=== PATIENT | female | born 1940 | race Caucasian/White ===

== ENCOUNTER 2018-07-22 09:22 | Inpatient (IN) | payer MEDICARE, OTHER ==
--- NOTE | 2018-07-22 11:09 | RAD ---
PORTABLE CHEST: Date: 07/22/18 HISTORY: Altered mental status. COMPARISON: 11/15/15. FINDINGS: Heart size is within normal limits for portable technique. Atherosclerotic changes are seen in the ao rta. The lungs are clear of infiltrates. Old right-sided rib fracture and right clavicle fracture are noted. IMPRESSION: No active intrathoracic disease. POS: [facility]
[2018-07-22 11:37] LABS: ALT (SGPT) 21 U/L (8-55); AST (SGOT) 16 U/L (5-34); Albumin 3.5 g/dL (3.4-4.8); Alkaline Phosphatase 75 U/L (40-150); Anion Gap 17 mmol/L (10-20); BUN (Urea Nitrogen) 12 mg/dL (9.8-20.1); Bilirubin, Total 0.4 mg/dL (0.2-1.2); CK (CPK) 95 U/L (29-168); Calc. Creatinine Clearance 0 mL/min (70-130); Calcium 8.8 mg/dL (7.8-10.44); Carbon Dioxide 24 mmol/L (23-31); Chloride 98 mmol/L (98-107); Estimated GFR-MDRD 52; Globulin 3.2 g/dL (2.4-3.5); Glucose 301 mg/dL (83-110); Potassium 3.9 mmol/L (3.5-5.1); Protein, Total 6.7 g/dL (6.0-8.3); Sodium 135 mmol/L (136-145)
[2018-07-22 11:38] LABS: Anisocytosis SLIGHT = 6-15 cells (100X) (0-5/hpf); Band 9 % (5-11); Eosinophils 2 % (0-10); Hypochromia SLIGHT = 6-15 cells (100X) (0-5/hpf); Lymphocytes 11 % (21-51); MDiff Complete? YES; Mean Corpuscular HGB CONC 30.3 g/dL (32.0-36.0); Mean Corpuscular Hemoglobin 24.4 pg (27.0-31.0); Mean Corpuscular Volume 80.5 fL (78.0-98.0); Mean Platelet Volume 5.9 fL (7.4-10.4); Metamyelocyte 1 % (0-0); Microcytosis SLIGHT = 6-15 cells (100X) (0-5/hpf); Monocytes 9 % (0-10); Neutrophil 64 % (42-75); Platelet Count 440 thou/uL (130-400); Platelet Morphology Comment Appears Adequate; RBC Distribution Width 14.8 % (11.5-14.5); Reactive Lymphocytes 3 % (0-10); Red Blood Cell (RBC) Count 4.07 mill/uL (4.20-5.40); Toxic Granulation SLIGHT; Vacuoles SLIGHT
[2018-07-22] MEDS ORDERED: cefTRIAXone\\ROCEPHIN 1 GM VIAL ONE (11:41)
[2018-07-22] MEDS ORDERED: Sodium Chloride 0.9% 100 ML ONE (11:42)
[2018-07-22 11:45] LABS: Bilirubin Negative (Negative); Blood, Urine Small (Negative); Clarity Slightly Cloudy (Clear); Glucose, Urine (Dipstick) >=1000 mg/dL (Negative); Leukocyte Small (Negative); Nitrite Negative (Negative); Protein, Urine (Dipstick) Negative (Neg-Trace); Specific Gravity, Urine 1.015 (1.005-1.030); Urobilinogen 0.2 mg/dL (0.2-1.0)
[2018-07-22 11:50] LABS: RBC/HPF 0-3 HPF (0-3)
[2018-07-22 11:51] LABS: Bacteria/HPF 1+ HPF (None Seen); Renal Epithelial 0-3 HPF (0-3); Squamous Epithelial 0-3 HPF (0-3)
[2018-07-22 11:52] LABS: Hyaline Casts/LPF 0-3 HYALINE CAST LPF (0-3 Hyaline)
[2018-07-22 14:22] LABS: Troponin I Less than 0.010 ng/mL (< 0.028)
[2018-07-22] MEDS ORDERED: Acetaminophen 325 MG TAB PO PRN (16:35)
[2018-07-22] MEDS ORDERED: Ondansetron PF 4 MG/2 ML Vial IVP PRN (16:35)
[2018-07-22] MEDS ORDERED: Ondansetron ODT 4 MG TAB SL PRN (16:35)
[2018-07-22] MEDS ORDERED: Sodium Chloride 0.9% 1,000 ML IV SCH (16:45)
[2018-07-22 17:35] LABS: Troponin I Less than 0.010 ng/mL (< 0.028)
[2018-07-22] MEDS ORDERED: HumaLOG 300 UNITS/3 ML VIAL SC SCH (18:00)
[2018-07-22] MEDS ORDERED: Dextrose 50% Abboject 50 ML SYRINGE SLOW IVP PRN (18:32)
[2018-07-22] MEDS ORDERED: Dextrose 5% in Water 1,000 ML IV PRN (18:32)
[2018-07-22] MEDS ORDERED: Carbidopa/Levodopa 25-100 mg Tablet PO SCH ×2 (19:15→21:00)
[2018-07-22] MEDS: Carbidopa/Levodopa CR 50-200 mg Tablet PO SCH (21:23)
[2018-07-22] MEDS: Metoprolol Tartrate 25 MG TAB PO SCH (21:23)
--- NOTE | 2018-07-23 00:58 | HP ---
PRIMARY CARE PHYSICIAN: Randy Alexander. PRIMARY SUMMER BABYSITTER: Dr. De. CHIEF COMPLAINT: Urinary tract infection and acute confusion. HISTORY OF PRESENT ILLNESS: Ms. Fernández is a pleasant 77-year-old female with past medical history of atrial fibrillation, diabetes mellitus, hypothyroidism, Parkinson disease, who had presented to [facility] with increased symptoms of urinary frequency, urgency, and dysuria over the last week. She was seen by her family physician and started on ciprofloxacin last Sunday, she states that she has been taking this antibiotic since. Family was present at bedside and reports worsening generalized weakness along with acute confusion. The patient was noted to make a comment yesterday that she had requested family members to call 911 and to tell them that a bus was buried in the backyard with children in it. Family reports visual hallucinations, she has a history of Parkinson disease and takes carbidopa levodopa. Family, however, deny any history of these hallucinations in the past. They state that these have been worsening over the last week since she was recently diagnosed with urinary tract infection. She had denied any headache, fever, chills, any chest pain, palpitations, shortness of breath, abdominal pain , nausea, or vomiting. During the workup in the emergency department, it was found the patient be in acute atrial fibrillation with RVR, she was given 2 L of IV fluid and started on IV ceftriaxone secondary to UTI. Heart rate did improve in the 90s; however, once she was transferred to [facility] on the floor, heart rate was noted to return back in 130s. She had still denied any chest pain, palpitations, or shortness of breath or any other acute symptoms at that time. Blood cultures and also urine culture were obtained and pending at this time. The patient will be admitted for further workup and management of her symptoms. REVIEW OF SYSTEMS: All other systems reviewed and found to be negative unless mentioned in the HPI. PAST MEDICAL HISTORY: Significant for atrial fibrillation, diabetes mellitus, hypothyroidism, Parkinson disease. PAST SURGICAL HISTORY: Tonsillectomy. PSYCHIATRIC HISTORY: Reports Parkinson disease. Otherwise, no other psychiatric history. SOCIAL HISTORY: The patient lives at home with family and denies any alcohol, tobacco, or illicit drug use. KNOWN ALLERGIES: None. CURRENT HOME MEDICATIONS: 1. Metoprolol tartrate 50 mg p.o. b.i.d. 2. Levothyroxine 100 mcg oral daily. 3. Carbidopa levodopa 25/100 mg oral 3 times daily. 4. Humalog insulin pump home 4 times a day and before meals. PHYSICAL EXAMINATION: VITAL SIGNS: Blood pressure 128/61, pulse 137, respirations 17, O2 saturation 98% on room air, temperature 98.4 degrees Fahrenheit. GENERAL: The patient is awake, alert, and oriented x3, no acute distress noted. She does appear, however, generalized weak and appears slightly uncomfortable, however, denies any pain. HEENT: Atraumatic and normocephalic. Pupils are round and reactive to light. Extraocular muscles intact. Moist mucous membranes noted. NECK: Soft and supple. Trachea midline. CARDIOVASCULAR: Positive S1 and S2. Irregularly irregular rhythm with rates in the 130s on the monitor. No murmur auscultated. RESPIRATORY: Clear to auscultation bilaterally. No wheezes, rales, or rhonchi. ABDOMEN: Soft. Mild suprapubic tenderness noted to palpation, otherwise unremarkable. Bowel sounds present. BACK: Normal range of motion. No CVA tenderness. MUSCULOSKELETAL: Strength 5+ bilaterally in upper and lower extremities. Moves all extremities equal. No edema noted. NEUROLOGIC: Cranial nerves 2 through 12 grossly intact. No focal deficits noted. The patient oriented to person, place, and time; however, does appear confused at times and asked questions repetitively. SKIN: Warm, dry, and intact. PSYCHIATRIC: Good mood and affect. LABORATORY DATA: WBC 10.0, RBC 4.07, hemoglobin 10.0, platelet 440. Sodium 135 , potassium 3.9, anion gap 17, BUN 12, creatinine 1.04, estimated GFR 52, glucose 234. Lactic acid 1.0. Troponin less than 0.010 x3. Urinalysis shows small leukocyte esterase, 4 to 6 wbc's, 1+ bacteria, small blood, 40 ketone, and greater or equal to 1000 glucose. DIAGNOSTIC IMAGING: Chest x-ray, no active intrathoracic disease noted. ASSESSMENT AND PLAN: 1. Urinary tract infection. Await blood cultures and urine cultures at this time, currently pending. The patient will be started on IV ceftriaxone and this will be continued until cultures are finalized with sensitivities. 2. Atrial fibrillation with rapid ventricular response. The patient will be given bolus of 20 mg IV Cardizem and also be continued on her home medications including metoprolol. The patient is not on any anticoagulation at this time due to risk of falls, her primary die set up worker is Dr. De, who had discontinued anticoagulation in the past. 3. Acute encephalopathy, likely secondary to #1. The patient will be continued on IV antibiotics at this time until cultures return. 4. Diabetes mellitus. The patient will be continued on her home insulin pump at this time with frequent Accu-Cheks. Further changes pending her progress. 5. Hypothyroidism. The patient will be continued on her home regimen of levothyroxine. 6. History of Parkinson disease. Continue home regimen at this time. 7. Code status, full code. 8. Surrogate decision maker is her , [place]. DISPOSITION: Pending further workup and clinical findings. Job ID: [id number] MTDD
[2018-07-23 05:43] LABS: Anion Gap 13 mmol/L (10-20); BUN (Urea Nitrogen) 11 mg/dL (9.8-20.1); Calc. Creatinine Clearance 0 mL/min (70-130); Calcium 8.7 mg/dL (7.8-10.44); Carbon Dioxide 24 mmol/L (23-31); Chloride 103 mmol/L (98-107); Estimated GFR-MDRD 62; Glucose 189 mg/dL (83-110); Potassium 3.6 mmol/L (3.5-5.1); Sodium 136 mmol/L (136-145)
[2018-07-23 05:55] LABS: Band 14 % (5-11); Hemoglobin 10.1 g/dL (12.0-16.0); Lymphocytes 17 % (21-51); MDiff Complete? YES; Mean Corpuscular HGB CONC 30.5 g/dL (32.0-36.0); Mean Corpuscular Hemoglobin 25.5 pg (27.0-31.0); Mean Corpuscular Volume 83.5 fL (78.0-98.0); Mean Platelet Volume 7.3 fL (7.4-10.4); Monocytes 6 % (0-10); Myelocyte 2 % (0-0); Neutrophil 61 % (42-75); Platelet Count 496 thou/uL (130-400); RBC Distribution Width 14.7 % (11.5-14.5); Red Blood Cell (RBC) Count 3.97 mill/uL (4.20-5.40)
[2018-07-23] MEDS: Carbidopa/Levodopa 25-100 mg Tablet PO SCH ×3 (06:28→18:44)
[2018-07-23] MEDS: Levothyroxine Sodium 100 MCG TAB PO SCH (06:28)
[2018-07-23] MEDS: Metoprolol Tartrate 25 MG TAB PO SCH ×2 (08:22→20:31)
[2018-07-23] MEDS: Enoxaparin Sodium 40 MG/0.4 ML SYRINGE SC SCH (08:22)
[2018-07-23] MEDS: Famotidine 20 MG TAB PO SCH (08:22)
--- NOTE | 2018-07-23 09:26 | PDOC.PN ---
- Subjective Encounter Start Date: 07/23/18 Encounter Start Time: 11:10 Subjective: Patient with some confusion and hallucination on waking this AM, better -: now, was agitated last night and didn't sleep well. - Objective MAR Reviewed: Yes Vital Signs & Weight: Vital Signs (12 hours) Temp Pulse Resp BP BP Pulse Ox 07/23/18 08:20 98 F 120 H 18 112/63 96 07/23/18 04:00 97.4 F L 97 16 128/60 94 L 07/23/18 00:00 107 H 120/68 Weight Weight 5.358 oz Result Diagrams: 07/23/18 05:02 07/23/18 05:02 Additional Labs: Accuchecks 07/23/18 07/23/18 07/22/18 05:59 00:07 20:33 POC Glucose 187 H 188 H 293 H 07/22/18 16:47 POC Glucose 234 H Phys Exam - Physical Examination Constitutional: NAD HEENT: moist MMs Respiratory: no wheezing, no rales, no rhonchi Cardiovascular: irregular 90-100s rate Gastrointestinal: soft, positive bowel sounds Neurological: non-focal, moves all 4 limbs Deviation from normal: sleepy, arousable, mildly confused, no active hallucinations right now Dx/Plan (1) Urinary tract infection Status: Acute Comment: failed outpatient Cipro, on Rocephin since 07/22/2018 (2) Atrial fibrillation with rapid ventricular response Code(s): I48.91 - UNSPECIFIED ATRIAL FIBRILLATION Status: Acute Comment: Slowed with Cardizem last night but back up this AM, will rebolus and start diltiazem drip, Dr. Grajeda consulted (3) Acute metabolic encephalopathy Code(s): G93.41 - METABOLIC ENCEPHALOPATHY Status: Acute Comment: possibly secondary to UTI, however UA doesn't look that bad so not completely convinced that this is treatment failure, other possibility would be delirium from medications like the Cipro or from the Afib with RVR which have uncovered her parkinson's symptoms (she had hallucinations in the past prior to starting treatmtent) (4) Parkinson's disease Code(s): G20 - PARKINSON'S DISEASE Status: Chronic (5) DM type 2 (diabetes mellitus, type 2) Status: Chronic Qualifiers: Diabetes mellitus long-term insulin use: with road engineer use Comment: on insulin pump (6) Hypothyroidism Code(s): E03.9 - HYPOTHYROIDISM, UNSPECIFIED Status: Chronic Comment: on levothyroxine - Plan cont current plan of care, continue antibiotics, PT/OT, DVT proph w/lovenox, DVT proph w/SCDs * . - Discharge Day Encounter end time: 11:20
[2018-07-23] MEDS ORDERED: Diltiazem 125 MG in Sodium Chloride 0.9% 100 ML IVPB SCH (09:30)
[2018-07-23] MEDS ORDERED: Melatonin 3 MG TAB PO PRN (12:25)
[2018-07-23 12:41] VITALS: BMI 27.2
[2018-07-23] MEDS ORDERED: cefTRIAXone\\ROCEPHIN 1 GM in Sodium Chloride 0.9% 100 ML IVPB SCH (15:00)
[2018-07-23] MEDS: Carbidopa/Levodopa CR 50-200 mg Tablet PO SCH (20:30)
--- NOTE | 2018-07-23 20:36 | CON ---
DATE OF CONSULTATION: 07/23/2018 REASON FOR CONSULTATION: Atrial fibrillation. HISTORY OF PRESENT ILLNESS: Ms. Fernández is a 77-year-old woman, who has been seen and evaluated by Dr. Alex De in the past. She has an appointment coming up in August. She recently presented with atrial fibrillation. She states that she has had intermittent atrial fibrillation in the past. This occurred when she has a sickness. She recently was diagnosed with UTI and was placed on IV antibiotics. She does have intermittent heart fluttering. No chest pain, pressure, or shortness of breath. She has not been on anticoagulation therapy in the past due to risk of falls and bleeding. PAST MEDICAL HISTORY: As described above including diabetes mellitus, Parkinson disease, hypothyroidism, and tonsillectomy. HOME MEDICATIONS: Include metoprolol, levothyroxine, carbidopa, and Humalog. REVIEW OF SYSTEMS: A 10-point review of systems is reviewed as above, otherwise negative. PHYSICAL EXAMINATION: GENERAL: Patient is a pleasant female, who is in no acute distress. The patient appears their stated age. VITAL SIGNS: Blood pressure 131/76, pulse 107, temperature 97.9. NEUROLOGIC: The patient is alert and oriented x3 with no focal neurologic deficits. HEENT: Sclerae without icterus. Mouth has moist mucous membranes with normal pallor. NECK: No JVD. Carotid upstroke brisk. No bruits bilaterally. LUNGS: Clear to auscultation with unlabored respirations. BACK: No scoliosis or kyphosis. CARDIAC: Irregularly irregular. ABDOMEN: Soft, nontender, nondistended. No peritoneal signs present. No hepatosplenomegaly. No abnormal striae. EXTREMITIES: 2+ femoral and 2+ dorsalis pedis pulses. No cyanosis, clubbing, or edema. SKIN: No gross abnormalities. PERTINENT LABORATORY DATA: Hemoglobin 10.1. Creatinine 0.89. IMPRESSION: 1. Atrial fibrillation with rapid ventricular response. 2. Urinary tract infection, complicated. RECOMMENDATIONS: IV Cardizem has been discontinued. She is currently on beta marina therapy and would titrate as needed. She is currently on 50 mg of metoprolol b.i.d. We will increase to 75 b.i.d. and may need to back off prior to discharge. Okay from my standpoint to cover with Lovenox, but the patient is concerned about anticoagulation therapy at home. Family was present during discussion. At this point, they would like to speak further with Dr. De as an outpatient. We will defer anticoagulation therapy after discharge. Job ID: [id number]
[2018-07-23] MEDS ORDERED: Metoprolol Tartrate 50 MG TAB PO SCH (21:00)
[2018-07-24] MEDS: Levothyroxine Sodium 100 MCG TAB PO SCH (05:05)
[2018-07-24] MEDS: Carbidopa/Levodopa 25-100 mg Tablet PO SCH ×2 (05:06→12:28)
--- NOTE | 2018-07-24 06:29 | PDOC.CTH ---
Cardiology Progress Note - Objective Vital Signs Temp Pulse Resp BP Pulse Ox 07/24/18 04:00 98.0 F 92 18 124/66 94 L 07/24/18 00:00 97 143/61 H 07/23/18 20:10 97 07/23/18 19:25 98.4 F 114 H 18 125/69 97 Admit Weight 153 lb 9.6 oz Weight 158 lb 12.8 oz 07/22/18 07/23/18 07/24/18 06:59 06:59 06:59 Intake Total 1700 Output Total 1400 Balance 300 - Physical Examination General/Neuro: alert & oriented x3, NAD Neck: carotid US brisk, no JVD present Lungs: unlabored respirations Heart: other: (irr) Abdomen: NT/ND, soft Extremities: + femoral B - Telemetry Telemetry Rhythm: IRR - Labs Result Diagrams: 07/23/18 05:02 07/23/18 05:02 Troponin/CKMB Troponin I Less than 0.010 ng/mL (< 0.028) 07/22/18 17:10 - Assessment/Plan Afib UTI Parkinsons Continue rate control. HR better with increase in BB Antibiotics Pt has deferred ACT given risk of falls
[2018-07-24] MEDS ORDERED: Levothyroxine Sodium 100 MCG TAB PO SCH (09:00)
--- NOTE | 2018-07-24 09:03 | PDOC.PN ---
- Subjective Encounter Start Date: 07/24/18 Encounter Start Time: 10:00 Subjective: Patient feeling better. Slept better last night. No further hallucinations -: or confusion. A&O x3 this AM. Ambulating with PT. at bedside. - Objective MAR Reviewed: Yes Vital Signs & Weight: Vital Signs (12 hours) Temp Pulse Resp BP Pulse Ox 07/24/18 04:00 98.0 F 92 18 124/66 94 L 07/24/18 00:00 97 143/61 H Weight Admit Weight 153 lb 9.6 oz Weight 158 lb 12.8 oz I&O: 07/23/18 07/24/18 07/25/18 06:59 06:59 06:59 Intake Total 1700 Output Total 1400 Balance 300 Result Diagrams: 07/23/18 05:02 07/23/18 05:02 Additional Labs: Accuchecks 07/24/18 07/23/18 07/23/18 05:40 20:35 17:33 POC Glucose 325 H 174 H 109 07/23/18 11:02 POC Glucose 163 H Phys Exam - Physical Examination Constitutional: NAD HEENT: moist MMs Respiratory: no wheezing, no rales, no rhonchi, clear to auscultation bilateral Cardiovascular: RRR, no significant murmur Gastrointestinal: soft, positive bowel sounds Neurological: non-focal, moves all 4 limbs Psychiatric: normal affect, A&O x 3 Dx/Plan (1) Urinary tract infection Status: Acute Comment: failed outpatient Cipro, on Rocephin since 07/22/2018, growing E. coli resistant to Cipro but sensitive to Rocephin, can convert to oral Omnicef. (2) Atrial fibrillation with rapid ventricular response Code(s): I48.91 - UNSPECIFIED ATRIAL FIBRILLATION Status: Acute Comment: Dr. Grajeda following. Rate improved with increased Metoprolol dose. Deferring anticoagulation due to hx of falls. (3) Acute metabolic encephalopathy Code(s): G93.41 - METABOLIC ENCEPHALOPATHY Status: Acute Comment: likely secondary to UTI uncovering Parkinson's symptoms (4) Parkinson's disease Code(s): G20 - PARKINSON'S DISEASE Status: Chronic (5) DM type 2 (diabetes mellitus, type 2) Status: Chronic Qualifiers: Diabetes mellitus longterm insulin use: with terminal computer operator use Comment: on insulin pump (6) Hypothyroidism Code(s): E03.9 - HYPOTHYROIDISM, UNSPECIFIED Status: Chronic Comment: on levothyroxine - Plan cont current plan of care, continue antibiotics, PT/OT If ambulates well with PT today can go home with home health. * . - Discharge Day Encounter end time: 10:30
[2018-07-24] MEDS: Famotidine 20 MG TAB PO SCH (09:07)
[2018-07-24] MEDS: Enoxaparin Sodium 40 MG/0.4 ML SYRINGE SC SCH (09:08)
[2018-07-24] MEDS: Metoprolol Tartrate 25 MG TAB PO SCH (09:08)
[2018-07-24 16:07] VITALS: BP 147/81; TEMP 97.7
[2018-07-24] MEDS ORDERED: Cefdinir 300 MG CAP PO SCH (21:00)
--- NOTE | 2018-07-25 07:54 | DIS ---
DATE OF ADMISSION: 07/22/2018 DATE OF DISCHARGE: 07/24/2018 PRIMARY CARE PHYSICIAN: Randy Alexander. PRIMARY TRANSFORMER REPAIRER: Dr. De. REASON FOR ADMISSION: Delirium and urinary tract infection. DISCHARGE DIAGNOSES: 1. Urinary tract infection. 2. Atrial fibrillation with rapid ventricular response, now controlled. 3. Acute metabolic encephalopathy, resolved. 4. Parkinson disease. 5. Diabetes mellitus, type 2. 6. Hypothyroidism. PROCEDURES: None. CONSULTATION: Cardiology, Dr. Grajeda. SUMMARY OF HOSPITAL COURSE: This is a 77-year-old white female with a history of Parkinson's, previously with hallucinations until she started taking medications for it. She was in her normal state of health until a little over week ago. She developed urinary frequency, urgency, and dysuria. She was treated by her primary care doctor with ciprofloxacin. However, she worsened over the last couple of days and then she started having hallucinations along with weakness. She was seen in the emergency room, was noted to be in atrial fibrillation with RVR. She states the atrial fibrillation was not a new diagnosis, but usually is controlled. She was also noted to have a persistent urinary tract infection. Urine culture was done and the patient was started on Rocephin. She was admitted to the hospital. Her heart rate was controlled by increasing her metoprolol. Dr. Grajeda was consulted with Cardiology. He did discuss doing anticoagulation for the patient given her history of atrial fibrillation to prevent stroke. However, she and her family were concerned about her history of falls and want to defer discussing further about anticoagulation until she talks with her outpatient farm or ranch animal caretaker, Dr. De. The patient had some continued confusion in the first day or so in the hospital; however, this improved. Her urine culture eventually grew out Escherichia coli that was resistant to ciprofloxacin, but sensitive to Rocephin. On the day of discharge, she ambulated well with physical therapy and we did discuss with her and her about going to rehab versus home with home health and they determined they wanted to go home with home health. The stated that he thinks he can take care of her well at home. DISCHARGE MANAGEMENT: Discharged home with [facility]. ACTIVITY: As tolerated. DIET: Diabetic diet. THERAPY: Physical and occupational therapy. FOLLOWUP: Follow up with primary care physician in the next week and with Dr. De in the next 1 to 2 weeks. DISCHARGE MEDICATIONS: 1. Omnicef 300 mg twice a day for 10 more days. 2. Metoprolol tartrate 75 mg twice a day, 60 tablets dispensed. 3. Continue carbidopa/levodopa 25/100 mg tablets one tablet 3 times a day. 4. Carbidopa/levodopa extended release 25/100 mg tablet one at night. 5. Levothyroxine 100 mcg daily. TIME SPENT: Arranging the details of this discharge took 32 minutes. Job ID: [id number]
== END 2018-07-24 16:45 | disposition home health service (06) | DRG 689 ==
LOC: SCSER 09:22 → 2NO 12:50
PROVIDERS: ADMIT Internal Medicine; ATTEND Internal Medicine
DX: N39.0 Urinary tract infection, site not specified (principal); G93.41 Metabolic encephalopathy; I48.91 Unspecified atrial fibrillation; E11.9 Type 2 diabetes mellitus without complications; E03.9 Hypothyroidism, unspecified; G20 Parkinson's disease; Z96.41 Presence of insulin pump (external) (internal); B96.20 Unspecified Escherichia coli [E. coli] as the cause of diseases classified elsewhere; Z79.899 Other long term (current) drug therapy; Z79.4 Long term (current) use of insulin
CPT/HCPCS: 36415; 36416; 71045; 80048; 80053; 81003; 81015; 82550; 83605; 84484; 85025; 87040; 87077; 87086; 87186; 93005; 96361; 96365; J0696; J1650; J3490

== ENCOUNTER 2019-02-28 17:21 | Inpatient (IN) | payer MEDICARE ==
[~2019-02-28 17:21] MED LIST: Iopamidol-370 76% 500 ML 1 ML ONE
[2019-02-28] MEDS ORDERED: Morphine 4 MG/ML VIAL ONE (18:19)
[2019-02-28 18:26] LABS: #Eosinphils 0.1 thou/uL (0.0-0.7); #Lymphocytes 0.9 thou/uL (1.20-3.40); #Monocytes 1.2 thou/uL (0.11-0.59); #Neutrophils 12.5 thou/uL (1.40-6.50); %Basophils 0.1 % (0.0-1.0); %Eosinophils 0.5 % (0.0-10.0); %Lymphocytes 5.9 % (21.0-51.0); %Monocytes 8.1 % (0.0-10.0); %Neutrophils 85.3 % (42.0-75.0); Hemoglobin 10.7 g/dL (12.0-16.0); Mean Corpuscular HGB CONC 31.6 g/dL (32.0-36.0); Mean Corpuscular Hemoglobin 25.6 pg (27.0-31.0); Mean Corpuscular Volume 81.1 fL (78.0-98.0); Mean Platelet Volume 8.1 fL (7.4-10.4); Platelet Count 245 thou/uL (130-400); RBC Distribution Width 15.2 % (11.5-14.5); Red Blood Cell (RBC) Count 4.17 mill/uL (4.20-5.40); White Blood Cell (WBC) Count 14.6 thou/uL (4.8-10.8)
[2019-02-28 18:49] LABS: ALT (SGPT) 8 U/L (8-55); AST (SGOT) 28 U/L (5-34); Albumin 4.2 g/dL (3.4-4.8); Alkaline Phosphatase 96 U/L (40-110); Anion Gap 13 mmol/L (10-20); BUN (Urea Nitrogen) 28 mg/dL (9.8-20.1); Bilirubin, Total 0.5 mg/dL (0.2-1.2); Calc. Creatinine Clearance 0 mL/min (70-130); Calcium 9.5 mg/dL (7.8-10.44); Carbon Dioxide 27 mmol/L (23-31); Chloride 101 mmol/L (98-107); Estimated GFR-MDRD 49; Glucose 201 mg/dL (83-110); Potassium 4.5 mmol/L (3.5-5.1); Protein, Total 7.2 g/dL (6.0-8.3); Sodium 136 mmol/L (136-145)
--- NOTE | 2019-02-28 18:54 | RAD ---
XR Chest 1 View Portable History: Fall Comparison: Radiograph July 22, 2018 Findings: Heart size mildly enlarged. Mild ectasia of the aorta. Old right midclavicular fracture. No pneumothorax. No effusion. Possible fracture of the left scapular body. Impression: Concern for a left scapular body fracture. Age-indeterminate right lateral sixth rib frac ture.
--- NOTE | 2019-02-28 18:57 | RAD ---
XR Pelvis AP STANDARD History: Fall Comparison: None. Findings: Lumbosacral transitional vertebra. There is listhesis, which may be chronic, of L3 over L4. There is a lucency of the right initial spine although may be positional. Obturator rings appear to be intact as well as the femoral heads and necks. Impression: 1. Lucency through the right ischial spine may be positional due to rightward patient rotation. Remai nder the pelvis appears without fracture. 2. Subluxation of with appears be L3 over L4 could be chronic degenerative in nature. 3. Lumbosacral transitional vertebra. 4. Sclerosis of the left S1 may reflect a healed chronic insufficiency fracture versus a dense vascul ar calcification.
[2019-02-28 18:58] LABS: Bilirubin Negative (Negative); Blood, Urine Negative (Negative); Clarity Clear (Clear); Glucose, Urine (Dipstick) Normal (Negative); Leukocyte 500 Leu/uL (Negative); Nitrite Negative (Negative); Protein, Urine (Dipstick) 30 mg/dL (Neg-Trace); Squamous Epithelial 0-3 HPF (0-3); WBC/HPF Greater than 50 HPF (0-3)
--- NOTE | 2019-02-28 19:36 | CT ---
CT Brain WO Con History: Fall Comparison: CT brain 2016 Findings: No acute hemorrhage or infarct. No midline shift or mass effect. Ventricular size and extra -axial CSF spaces are normal. Calvarium is intact. Paranasal sinuses and mastoids are clear. Impression: No acute intracranial abnormality.
[2019-02-28 19:38] LABS: Bacteria/HPF 1+ HPF (None Seen)
--- NOTE | 2019-02-28 19:43 | CT ---
CT Cervical Spine WO Con History: Fall Comparison: CT cervical spine 2016 Findings: Old C7 compression fracture. The occipital condyles are intact. The odontoid process is int act. No acute traumatic facet joint widening. New height loss of the T2 vertebral body with what appears to be a coronally oriented fracture throug h the anterior vertebral body. This appears be a acute on chronic fracture. Small anterior paraspinal hematoma at the level of T2. No retropulsion. Lung apices are relatively clear. Impression: 1. No acute cervical spine fracture. 2. Soft tissue edema around the T2 vertebral body with appears be an old compression deformity with 5 0% height loss with a relatively acute-appearing coronally oriented fracture through the anterior 20% of the vertebral body.
--- NOTE | 2019-02-28 19:50 | CT ---
CT Abdomen Pelvis Trauma History: Fall from standing. Comparison: None. Findings: Mild scarring lung bases. No pericardial effusion. Aortic contour is nonaneurysmal. No dilated loops of large or small bowel. No hydronephrosis. No free intraperitoneal gas or fluid. No mesenteric hematoma. Moderate degenerative changes both SI joints. Lumbosacral transitional vertebra. Healing insufficienc y fractures of both sacral alar. Initial spines are intact. Femoral heads and necks are intact. Bones are demineralized. There is L3 over L4 and L4 over L5 anterolisthesis due to high-grade facet arthrosis. Large posterior disc protrusions at both these levels cause high-grade neural foraminal narrowing and effacement of the spinal canal. No transverse process fracture. No acute solid organ injury. Visualized lower ribs are intact. Impression: 1. No acute traumatic abnormality of the abdomen or pelvis. 2. Healing bilateral sacral alar insufficiency fractures. 3. Intact ischial spines. 4. High-grade facet arthropathy at the lower lumbar spine with grade 1 L3 over L4 and L4 over L5 ante rolisthesis with broad-based disc protrusions causing high-grade neural foraminal narrowing.
[2019-02-28] MEDS ORDERED: Magnesium 2 GM/50 ML BAG (IN WATER) ONE (19:53)
[2019-02-28] MEDS ORDERED: cefTRIAXone\\ROCEPHIN 1 GM VIAL ONE (19:56)
--- NOTE | 2019-02-28 20:04 | RAD ---
XR Shoulder Rt 3 View STANDARD History: Fall Comparison: None. Findings: Exam is severely limited due to the kyphosis. No definite fracture or malalignment is appre ciated. Impression: Limited examination due to kyphosis and osteopenia. No acute degenerative fracture or mal alignment of the right shoulder. Old right midclavicular fracture.
[2019-02-28] MEDS ORDERED: Fentanyl 100 MCG/2 ML VIAL ONE (20:30)
[2019-02-28] MEDS ORDERED: Diltiazem 125 MG/25 ML ONE (21:48)
[2019-02-28] MEDS ORDERED: Diltiazem HCl 125 MG, Admixture Fee 1 EACH in Sodium Chloride 0.9% 100 ML IVPB SCH (22:15)
[2019-02-28] MEDS ORDERED: Bisacodyl 5 MG TAB PO PRN (23:50)
[2019-02-28] MEDS ORDERED: HumaLOG 300 UNITS/3 ML VIAL SC PRN (23:50)
[2019-02-28] MEDS ORDERED: Dextrose 50% Abboject 50 ML SYRINGE SLOW IVP PRN (23:50)
[2019-02-28] MEDS ORDERED: Acetaminophen 325 MG TAB PO PRN (23:50)
[2019-02-28] MEDS ORDERED: Dextrose 5% in Water 1,000 ML IV PRN (23:50)
[2019-02-28] MEDS ORDERED: Furosemide 40 MG/4 ML VIAL SLOW IVP SCH (23:59)
--- NOTE | 2019-03-01 00:26 | HP ---
PRESENTING COMPLAINT: For neck pain. HISTORY OF PRESENT ILLNESS: Ms. Pradeep Espino is a 78-year-old female with past medical history of hypertension, atrial fibrillation, previously on anticoagulation due to recurrent falls, diabetes mellitus, hypertension, Parkinson disease, hypothyroidism, who presented after sustaining a fall while walking to the bathroom today. She denies any chest pain. No dizziness. She states she has been having multiple falls as well as unsteady gait. After the fall today, she noticed intense pain over the lower posterior neck. She was brought by EMS to the emergency room and imaging shows evidence of T2 fractures. The patient is being evaluated by Neurosurgery also. She admits to recurrent dysuria, but denies any current symptoms now. She admits to recent worsening of her lower extremity swelling. PAST MEDICAL HISTORY: Significant for hypertension, atrial fibrillation, not on any anticoagulation, hypothyroidism, Parkinson disease, diabetes mellitus, and recurrent falls. PAST SURGICAL HISTORY: Tonsillectomy. SOCIAL HISTORY: The patient resides at home with her family. She denies any alcohol, tobacco, or illicit drug use. HOME MEDICATIONS: Reviewed, include; 1. Sinemet. 2. Insulin pump. 3. Synthroid. 4. Metoprolol. FAMILY HISTORY: Noncontributory in this elderly lady. REVIEW OF SYSTEMS: All systems reviewed x14 were negative except as mentioned above. ALLERGIES: NO KNOW DRUG ALLERGY. PHYSICAL EXAMINATION: VITAL SIGNS: Current vitals, blood pressure of 145/87, respiratory rate of 16, O2 saturation 99% on 2 L nasal cannula. Pulse ranging from 99 to 110. GENERAL: Obese, elderly female, lying in bed, awake and conversant. HEENT: Head is atraumatic, normocephalic. cervical collar. Marked tenderness over the posterior upper thoracic margin extending to bilateral scapula and shoulders. The patient is unable to lift hands beyond 30 degrees due to pain. RESPIRATORY: Good air entry. No crepitation. CARDIOVASCULAR: S1, S2. Irregular rhythm. ABDOMEN: Full, soft, nontender. Bowel sounds positive. Left lower quadrant insulin pump noted. EXTREMITIES: 2+ pedal edema. No calf tenderness. NEUROLOGIC: The patient is conversant, alert, and oriented x3. No neurological focal motor deficit except the exam of upper extremity limited due to pain symptoms. LABORATORY DATA: WBC 14.6, platelet 245, hemoglobin 10.7, neutrophils 85%. Sodium 136, potassium 4.5, magnesium 2.0, and creatinine 1. TSH of 3.9. Urinalysis shows 500 leukocyte esterase, 1+ bacteria. IMAGING STUDIES: EKG shows atrial fibrillation with RVR pattern. X-ray of the right shoulder shows limited examination due to kyphosis and osteopenia, old right midclavicular fracture. Cervical spine CT shows soft tissue edema around the T2 vertebral body with an old compression deformity and a relatively appearing coronally-oriented fracture through the anterior 20% of the vertebral body. Chest x-ray shows concern for left scapular body fracture and a right lateral 6th rib fracture. Head CT shows no acute intracranial abnormality. Abdominal CT shows no acute traumatic abnormality of the abdomen and pelvis, healing bilateral sacral ala insufficiency fractures. IMPRESSION: 1. Urinary tract infection. 2. Recurrent falls. 3. T2 vertebral body acute fracture. 4. History of Parkinson disease. 5. Diabetes mellitus, on insulin pump. PLAN: We will admit the patient to inpatient status. We will manage the patient for the following; 1. Urinary tract infection. We will obtain urine culture. Start empirical Rocephin 1 g daily. We will adjust antibiotics based on culture. 2. Recurrent falls, may be due to Parkinson with acute UTI. We will obtain consult PT and OT re-evaluation. 3. T2 vertebral body fracture. We will do pain medication with IV morphine and start low-dose fentanyl patch. We will consult Interventional Radiology for possible kyphoplasty to improve pain symptoms in a.m. 4. Atrial fibrillation with RVR. We will increase the patient's metoprolol dosage and follow. No urgent need for anticoagulation for now. 5. Diabetes mellitus. We will hold insulin pump and do insulin sliding scale. Await Accu-Cheks. 6. Presumed acute diastolic CHF exacerbation with 2+ lower extremity edema. We will start the patient on low-dose diuretics and obtain echocardiogram. 7. Advance directives, the patient is a full code. Total time spent in evaluation of patient, discussion, greater than 70 minutes. Job ID: [id number]
--- NOTE | 2019-03-01 03:00 | CON ---
DATE OF CONSULTATION: HISTORY OF PRESENT ILLNESS: Ms. Fernández is a 78-year-old female, who reports to the ED following a fall. Family states that she was in a chair, got her feet tangled up and she fell backwards onto a concrete floor. She is complaining of shoulder pain bilaterally. Neurosurgery was consulted for a T2 compression fracture. When I entered the room, she is resting with her eyes closed and her family in the room. She complains about pain in the left shoulder more than the right, but she does not want to move either arm very well due to pain. She has a rib fracture on the right and a scapular fracture on the left and a T2 compression fracture. The patient denies pain in the low back or the legs. She denies any numbness or tingling. She moves the lower extremities for me. Wiggles her toes. Moves her ankles, knees, and hips. She moves the right arm, gives me a good official court reporter strength on both arms, but will move her left. The patient seems mildly confused. However, she does have a UTI as well. She is quite sensitive and does not like anything on her arms or her chest. REVIEW OF SYSTEMS: A 10-point review of systems is completed and negative other than stated above in the HPI. ALLERGIES: NO KNOWN DRUG ALLERGIES. CURRENT MEDICATIONS: 1. Levothyroxine. 2. Humalog. 3. Metoprolol. 4. Carvedilol. PAST MEDICAL HISTORY: Cardiac history, arrhythmia, atrial fibrillation, diabetes, endocrine, hypothyroidism, Parkinson's, C7 fracture. PAST SURGICAL HISTORY: Tonsillectomy. SOCIAL HISTORY: The patient denies alcohol, drug use, and no smoking history. PHYSICAL EXAMINATION: VITAL SIGNS: Blood pressure 146/80, heart rate 126, respirations 18, temperature 98.0, O2 saturations 96% on room air. CONSTITUTIONAL: The patient is awake and alert. She is afebrile. She is hypertensive and tachycardic. HEENT. Head is normocephalic and atraumatic. Pupils are equal, round, and reactive to light. Extraocular movements are intact. Hearing is intact. Moist mucous membranes. RESPIRATIONS: Normal work of breathing on room air. Symmetric chest rise. EXTREMITIES: Upper extremities; the patient reports significant pain in the left greater than right shoulder. She did give me a good official court reporter strength with the left hand. She moves her right shoulder with pain, but gives me good strength with biceps and triceps along with official court reporter strength, 4/5. Lower extremities; she has edema in the lower extremities, but normal range of motion. Some stiffness, but good strength in hip flexion, knee extension, knee flexion, extension, dorsiflexion, and plantar flexion. NEUROLOGIC: The patient is awake, alert, oriented to person, place, and time. I do not see any lateralizing sensory or motor deficits. Cranial nerves 2 through 12 are intact. IMAGING: CT brain, no acute intracranial abnormality. CT cervical spine, no acute cervical spinal fracture. There is soft tissue edema around T2 vertebra, which appears to be an old compression deformity with 50% height loss with a relatively acute appearing coronal oriented fracture through the anterior 20% of the vertebral body. CT chest, abdomen and pelvis, no acute traumatic abnormality of the abdomen or pelvis. Healing bilateral sacral alar insufficiency fractures. Intact ischial spine. High-grade facet atrophy of lower lumbar spine with grade 1 L3 over L4 and L4 over L5 anterolisthesis with broad-based disk protrusion causing high-grade neuroforaminal narrowing. ASSESSMENT AND PLAN: Ms. Fernández is a 78-year-old female, who sustained a fall from ground level. She has urinary tract infection, which the hospitalist is going to treat her for. She also has a scapular fracture and rib fracture along with a refracture of her T2 compression fracture. Our recommendation from neurosurgical standpoint is to put her in a brace for stability and pain control while she is up and standing. If she is in bed, she does not need to be braced. She can follow up with our office on an outpatient basis. If there are any further questions, please contact Neurosurgery. Job ID: [id number]
[2019-03-01 03:37] VITALS: BMI 25.1
[2019-03-01 04:44] LABS: Anion Gap 13 mmol/L (10-20); BUN (Urea Nitrogen) 24 mg/dL (9.8-20.1); Calc. Creatinine Clearance 54 mL/min (70-130); Calcium 8.7 mg/dL (7.8-10.44); Carbon Dioxide 21 mmol/L (23-31); Chloride 103 mmol/L (98-107); Estimated GFR-MDRD 57; Glucose 313 mg/dL (83-110); Magnesium 2.6 mg/dL (1.6-2.6); Potassium 4.2 mmol/L (3.5-5.1); Sodium 133 mmol/L (136-145)
[2019-03-01 04:49] LABS: Troponin I Less than 0.010 ng/mL (< 0.028)
[2019-03-01] MEDS ORDERED: Furosemide 40 MG/4 ML VIAL SLOW IVP SCH ×2 (06:00→14:00)
[2019-03-01] MEDS: Levothyroxine Sodium 100 MCG TAB PO SCH (06:29)
[2019-03-01] MEDS: HYDROcodone/Acetaminophen 7.5/325 mg Tablet PO PRN ×2 (08:42→14:37)
[2019-03-01] MEDS: Aspirin Chewable 81 MG TAB PO SCH (08:43)
[2019-03-01] MEDS: Enoxaparin Sodium 40 MG/0.4 ML SYRINGE SC SCH (08:44)
[2019-03-01] MEDS ORDERED: Metoprolol Tartrate 50 MG TAB PO SCH (09:00)
[2019-03-01] MEDS ORDERED: Famotidine 20 MG TAB PO SCH (09:00)
--- NOTE | 2019-03-01 10:22 | PDOC.HHP ---
Hospitalist HPI - History of Present Illness Fall History of Present Illness: Patient is a 78 year old female with PMH DM, atrial fibrillation, hypothyroidism , parkinsons disease who presented to ED for fall. Rancho at bedside, patient awake and alert. She fell backwards and hit concrete floor during meal, landed on L side, has chronic R sided weakness after bad fall 2 years ago and has been working with PT on this. She denies LOC, denies prodrome/dizziness before fall. No palpitaiton, shortness of breath, or chest pain before fall. Patient had a UTI last month treated with antibiotics by primary care Dr Meagan Arroyo. believes patient never quite recovered from this UTI despite treatment and has continued to have hallucinations and weakness. Patient was ambulating as home with 4 wheeled walker. Patient and believe this was a mechanical fall due to misstep. She reports pain in head anc shoulders and neck since the incident. this was at about 3pm yesterday. 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 She has also been getting lost around the house for the last few days. Sales And Catering Coordinator is Dr Clemons, not on blood thinner, she has dose of metoprolol changed from 75 mg BID to 25mg BID about 3 months ago by cardiology. For DM: checks sugar in AM, has a pump which uses to give injections. They have been using it here. Sugars uncontrolled. ED Course: EKG atrial fibrillation, rate 125, nonspecific ST changes, QTc 473 Hospitalist ROS - Medication Medications: Active Medications Generic Name Dose Route Start Last Admin Trade Name Freq PRN Reason Stop Dose Admin Hydrocodone Bitart/Acetaminophen 1 tab 02/28/19 23:50 03/01/19 08:42 [place] 7.5/325 PO 1 tab Q4H PRN Administration Moderate Pain (4-6) Aspirin 81 mg 03/01/19 09:00 03/01/19 08:43 Aspirin Chewable PO 81 mg DAILY ROSELYN Administration Enoxaparin Sodium 40 mg 03/01/19 09:00 03/01/19 08:44 Lovenox SC 40 mg 0900 ROSELYN Administration Famotidine 20 mg 03/01/19 09:00 03/01/19 08:43 Pepcid PO 20 mg DAILY ROSELYN Administration Fentanyl 12 mcg 03/01/19 01:00 03/01/19 03:07 Duragesic TD 12 mcg Q3D ROSELYN Administration Levothyroxine Sodium 100 mcg 03/01/19 06:00 03/01/19 06:29 Synthroid PO Not Given 0600 [facility] Metoprolol Tartrate 75 mg 03/01/19 09:00 03/01/19 10:05 Lopressor PO Not Given BID [facility] Hospitalist History - Past Medical History Other Medical History: DM, atrial fibrillation, hypothyroidism, parkinsons disease - Past Surgical History Other Surgical History: tonsillectomy - Family History Other Family History: reviewed and noncontributory - Social History Other Social History: denies alcohol, tobacco, drug usage Hospitalist Results - Labs Result Diagrams: 02/28/19 18:15 03/01/19 03:57 Lab results: WBC 14.6 thou/uL (4.8-10.8) H 02/28/19 18:15 Hgb 10.7 g/dL (12.0-16.0) L 02/28/19 18:15 Hct 33.8 % (36.0-47.0) L 02/28/19 18:15 MCV 81.1 fL (78.0-98.0) 02/28/19 18:15 Plt Count 245 thou/uL (130-400) 02/28/19 18:15 Neutrophils % 85.3 % (42.0-75.0) H 02/28/19 18:15 Sodium 133 mmol/L (136-145) L 03/01/19 03:57 Potassium 4.2 mmol/L (3.5-5.1) 03/01/19 03:57 Chloride 103 mmol/L (98-107) 03/01/19 03:57 Carbon Dioxide 21 mmol/L (23-31) L 03/01/19 03:57 BUN 24 mg/dL (9.8-20.1) H 03/01/19 03:57 Creatinine 0.96 mg/dL (0.6-1.1) 03/01/19 03:57 Glucose 313 mg/dL (83-110) H 03/01/19 03:57 Calcium 8.7 mg/dL (7.8-10.44) 03/01/19 03:57 Total Bilirubin 0.5 mg/dL (0.2-1.2) 02/28/19 18:15 AST 28 U/L (5-34) 02/28/19 18:15 ALT 8 U/L (8-55) 02/28/19 18:15 Alkaline Phosphatase 96 U/L (40-110) 02/28/19 18:15 Troponin I Less than 0.010 ng/mL (< 0.028) 03/01/19 03:57 B-Natriuretic Peptide 299.7 pg/mL (0-100) H 03/01/19 03:57 Serum Total Protein 7.2 g/dL (6.0-8.3) 02/28/19 18:15 Albumin 4.2 g/dL (3.4-4.8) 02/28/19 18:15 Urine Ketones 100 mg/dL (Negative) A 02/28/19 18:36 Urine Blood Negative (Negative) 02/28/19 18:36 Urine Nitrite Negative (Negative) 02/28/19 18:36 Ur Leukocyte Esterase 500 Vj/uL (Negative) A 02/28/19 18:36 Urine RBC 4-6 HPF (0-3) A 02/28/19 18:36 Urine WBC Greater than 50 HPF (0-3) A 02/28/19 18:36 Ur Squamous Epith Cells 0-3 HPF (0-3) 02/28/19 18:36 Urine Bacteria 1+ HPF (None Seen) A 02/28/19 18:36 Additional comment: CT C spine Impression: 1. No acute cervical spine fracture. 2. Soft tissue edema around the T2 vertebral body with appears be an old compression deformity with 5 0% height loss with a relatively acute-appearing coronally oriented fracture through the anterior 20% of the vertebral body. CT A/P 1. No acute traumatic abnormality of the abdomen or pelvis. 2. Healing bilateral sacral alar insufficiency fractures. 3. Intact ischial spines. 4. High-grade facet arthropathy at the lower lumbar spine with grade 1 L3 over L4 and L4 over L5 ante rolisthesis with broad-based disc protrusions causing high-grade neural foraminal narrowing. XR R shoulder 3 views Impression: Limited examination due to kyphosis and osteopenia. No acute degenerative fracture or mal alignment of the right shoulder. Old right midclavicular fracture. CT head no acute IC findings all reports reviewed inED documentation XR chest Impression: Concern for a left scapular body fracture. Age-indeterminate right lateral sixth rib frac ture. XR pelvis 1. Lucency through the right ischial spine may be positional due to rightward patient rotation. Remai nder the pelvis appears without fracture. 2. Subluxation of with appears be L3 over L4 could be chronic degenerative in nature. 3. Lumbosacral transitional vertebra. 4. Sclerosis of the left S1 may reflect a healed chronic insufficiency fracture versus a dense vascul ar calcification. Hospitalist H&P A/P - Plan Plan: # fall - troponinnegative high-grade facet arthropathy at the lower lumbar spine with grade 1 L3 over L4 and L4 over L5 ante rolisthesis with broad-based disc protrusions causing high-grade neural foraminal narrowing L scapular fracture, R 6th rib fracture soft tissue edema at T2 with old compression fracture # atrial fibrillation - patient was placed on cardizem drip in ED, to be converted to home dose of metoprolol 25mg PO BID # DM - continue home insulin pump, frequenct accu checks, follow sugars and adjust as needed # hypothyroidism - continue synthroid, TSH wnl # history of parkinsons disease - continue home regimen, will consider neurology consult to evaluate for need to increase doses given repeat falls Code status: full Surrogate decision maker: Rancho
[2019-03-01] MEDS ORDERED: Metoprolol Tartrate 25 MG TAB PO SCH (10:30)
[2019-03-01] MEDS ORDERED: cefTRIAXone\\ROCEPHIN 1 GM in Sodium Chloride 0.9% 100 ML IVPB SCH ×2 (11:00→21:00)
--- NOTE | 2019-03-01 11:05 | PDOC.HOSPP ---
- Subjective Encounter Date: 03/01/19 Encounter Time: 11:05 Subjective: Chief complaint: Fall Subjective Patient in bed, continues to complain of pain in shoulders, neck, back, head. Discussed case with Trauma team RITO at bedside who plans to order more imaging and will discuss with orthopedics if needed. Chart reviewed, 78 year old female with PMH DM, atrial fibrillation, hypothyroidism, parkinsons disease who presented to ED for fall. Rancho at bedside, patient awake and alert. She fell backwards and hit concrete floor during meal, landed on L side, has chronic R sided weakness after bad fall 2 years ago and has been working with PT on this. She denies LOC, denies prodrome/dizziness before fall. No palpitaiton, shortness of breath, or chest pain before fall. Patient had a UTI last month treated with antibiotics by primary care Dr Meagan Arroyo. believes patient never quite recovered from this UTI despite treatment and has continued to have hallucinations and weakness. Patient was ambulating as home with 4 wheeled walker. Patient and believe this was a mechanical fall due to misstep. She reports pain in head anc shoulders and neck since the incident. this was at about 3pm yesterday. 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 She has also been getting lost around the house for the last few days. K9 Handler is Dr Clemons, not on blood thinner, she has dose of metoprolol changed from 75 mg BID to 25mg BID about 3 months ago by cardiology. For DM: checks sugar in AM, has a pump which uses to give injections. They have been using it here. Sugars uncontrolled. - Objective Vital Signs & Weight: Vital Signs (12 hours) Temp Pulse Resp BP Pulse Ox 03/01/19 07:48 97.9 F 88 18 157/66 H 98 03/01/19 03:26 98.2 F 95 18 123/58 L 95 03/01/19 01:29 97.6 F 92 20 134/63 97 Weight Weight 150 lb 8 oz I&O: 02/28/19 03/01/19 03/02/19 06:59 06:59 06:59 Output Total 1200 Balance -1200 Result Diagrams: 02/28/19 18:15 03/01/19 03:57 Additional Labs: Accuchecks 03/01/19 05:43 POC Glucose [address] C spine Impression: 1. No acute cervical spine fracture. 2. Soft tissue edema around the T2 vertebral body with appears be an old compression deformity with 5 0% height loss with a relatively acute-appearing coronally oriented fracture through the anterior 20% of the vertebral body. CT A/P 1. No acute traumatic abnormality of the abdomen or pelvis. 2. Healing bilateral sacral alar insufficiency fractures. 3. Intact ischial spines. 4. High-grade facet arthropathy at the lower lumbar spine with grade 1 L3 over L4 and L4 over L5 ante rolisthesis with broad-based disc protrusions causing high-grade neural foraminal narrowing. XR R shoulder 3 views Impression: Limited examination due to kyphosis and osteopenia. No acute degenerative fracture or mal alignment of the right shoulder. Old right midclavicular fracture. CT head no acute IC findings all reports reviewed inED documentation XR chest Impression: Concern for a left scapular body fracture. Age-indeterminate right lateral sixth rib frac ture. XR pelvis 1. Lucency through the right ischial spine may be positional due to rightward patient rotation. Remai nder the pelvis appears without fracture. 2. Subluxation of with appears be L3 over L4 could be chronic degenerative in nature. 3. Lumbosacral transitional vertebra. 4. Sclerosis of the left S1 may reflect a healed chronic insufficiency fracture versus a dense vascul ar calcification. Radiology Reviewed by me: Yes Hospitalist ROS - Medication Medications: Active Medications Generic Name Dose Route Start Last Admin Trade Name Freq PRN Reason Stop Dose Admin Hydrocodone Bitart/Acetaminophen 1 tab 02/28/19 23:50 03/01/19 08:42 [place] 7.5/325 PO 1 tab Q4H PRN Administration Moderate Pain (4-6) Aspirin 81 mg 03/01/19 09:00 03/01/19 08:43 Aspirin Chewable PO 81 mg DAILY ROSELYN Administration Enoxaparin Sodium 40 mg 03/01/19 09:00 03/01/19 08:44 Lovenox SC 40 mg 0900 ROSELYN Administration Famotidine 20 mg 03/01/19 09:00 03/01/19 08:43 Pepcid PO 20 mg DAILY ROSELYN Administration Fentanyl 12 mcg 03/01/19 01:00 03/01/19 03:07 Duragesic TD 12 mcg Q3D ROSELYN Administration Levothyroxine Sodium 100 mcg 03/01/19 06:00 03/01/19 06:29 Synthroid PO Not Given 0600 ROSELYN Metoprolol Tartrate 25 mg 03/01/19 10:30 03/01/19 10:28 Lopressor PO 03/01/19 12:30 25 mg NOW ROSELYN Administration - Exam General Appearance: NAD, awake alert General - other findings: altered mental status Eye: PERRL ENT: dry oral mucosa Neck: supple, no JVD Heart: no murmur, no gallops, no rubs Heart - other findings: irregular Respiratory: CTAB, no wheezes, no rales, no ronchi Gastrointestinal: soft, non-tender, non-distended, normal bowel sounds Extremities: no cyanosis, no clubbing, no edema Skin: no lesions, no rashes Neurological: cranial nerve grossly intact Neurological - other findings: altered mental status, no focal deficits Musculoskeletal: generalized weakness Psychiatric - other findings: unable to evaluate Hosp A/P - Plan old records reviewed/req, plan discussed w/ family, PT/OT 78 year old female admitted for: # fall - mechanical likely secondary to generalized weakness and altered mental status/metabolic encephalopathy from UTI - troponin negative - treat other conditions as below - follow PT/OT - consider neurology consult or close outpatient neurology follow up to evaluate for need to increase doses given repeat falls # UTI - continue ceftriaxone - urine and blood cultures # leukocytosis - secondary to infection and fall, trend CBC # altered mental status - secondary to metabolic encephalopathy and delirium from UTI, treat as above # multiple MSK injuries on imaging, including high-grade facet arthropathy at the lower lumbar spine causing high-grade neural foraminal narrowing, L scapular fracture, R 6th rib fracture, soft tissue edema at T2 with old compression fracture - defer need for surgical intervention or surgical subspecialist consultation to trauma team, RITO reports to me trauma team has cleared her for therapy and requests TLSO when out of bed, activity remains bedrest but TLSO added to order and OK to work with PT and OT in bed, pain and AMS may limit usefulness of therapy at this time # atrial fibrillation - patient was placed on cardizem drip in ED, to be converted to home dose of metoprolol 25mg PO BID today for rate control # DM - continue home insulin pump, AC/HS checks, follow sugars and adjust as needed - currently sugars high but did not get any insulin yesterday, follow sugars today will not make changes # hypothyroidism - continue synthroid, TSH wnl # acute diastolic heart failure - EF preserved on lasix, R ventricle enlarged, stop lasix, cotton cleaner is Dr Clemons can consult if further fluid status issues # history of parkinsons disease - continue home regimen for now Code status: full, my partner discussed with patient and Surrogate decision maker: Rancho DVT/GI ppx ordered
[2019-03-01] MEDS ORDERED: cloNIDine 0.1 MG TAB PO PRN (11:12)
[2019-03-01] MEDS ORDERED: Promethazine HCl 12.5 MG in Sodium Chloride 0.9% 50 ML IVPB PRN (11:12)
[2019-03-01] MEDS ORDERED: Ondansetron PF 4 MG/2 ML Vial IVP PRN (11:12)
[2019-03-01] MEDS ORDERED: hydrALAZINE 20 MG/ML VIAL SLOW IVP PRN (11:12)
--- NOTE | 2019-03-01 12:13 | RAD ---
2 views of the left scapula: 03/01/2019 COMPARISON: None HISTORY: Fall, pain FINDINGS: No widening of the acromioclavicular or coracoclavicular interspace. No evidence for a left clavicle fracture. A fracture of the scapular body is suspected at the base of the glenoid. IMPRESSION: Findings concerning for acute fracture of left scapula. This could be best assessed via C T.
--- NOTE | 2019-03-01 12:14 | RAD ---
3 views right RIBS: 03/01/2019 COMPARISON: None HISTORY: Injury, pain FINDINGS: There is an old mid shaft right clavicle fracture with inferior angulation. Multiple old po sterior and lateral right-sided rib fractures noted. IMPRESSION: Multiple old fractures as detailed above.
[2019-03-01 14:33] LABS: #Monocytes 0.7 thou/uL (0.11-0.59); #Neutrophils 6.1 thou/uL (1.40-6.50); %Basophils 0.5 % (0.0-1.0); %Eosinophils 0.6 % (0.0-10.0); %Lymphocytes 12.2 % (21.0-51.0); %Monocytes 9.3 % (0.0-10.0); %Neutrophils 77.4 % (42.0-75.0); Hemoglobin 10.8 g/dL (12.0-16.0); Mean Corpuscular HGB CONC 31.7 g/dL (32.0-36.0); Mean Corpuscular Hemoglobin 25.5 pg (27.0-31.0); Mean Corpuscular Volume 80.5 fL (78.0-98.0); Mean Platelet Volume 9.2 fL (7.4-10.4); Platelet Count 143 thou/uL (130-400); RBC Distribution Width 15.2 % (11.5-14.5); Red Blood Cell (RBC) Count 4.25 mill/uL (4.20-5.40); White Blood Cell (WBC) Count 7.9 thou/uL (4.8-10.8)
--- NOTE | 2019-03-01 15:04 | CON ---
DATE OF CONSULTATION: 03/01/2019 TRAUMA SURGEON: Dr. Perkins. HISTORY OF PRESENT ILLNESS: The patient is a 78-year-old female who presented to the emergency department yesterday after a mechanical fall. She was admitted to the Medicine Service and Trauma was consulted this morning. The patient reported she got tripped up in her feet and that is why she fell. She denies anticoagulation use and loss of consciousness. On evaluation in the emergency department, she was found to have a left-sided scapular body fracture and T2 compression fracture. Orthopedic Surgery has evaluated the patient and recommended a CTLSO brace. There is concern for multiple right-sided rib fractures. However, these are reported as chronic. She reports pain to her lower extremities. Upon my evaluation, she states this pain is persistent since before the fall and is likely due to non-trauma related issues. She states that the pain is not worse today. There are no signs of trauma to her lower extremities. REVIEW OF SYSTEMS: All additional 10-point review of systems negative except as indicated above. PAST MEDICAL HISTORY: Hypertension, AFib, diabetes, Parkinson's, hypothyroidism , and multiple recent falls with unsteady gait. HOME MEDICATIONS: Include Sinemet, insulin pump, Synthroid, and metoprolol. PAST SURGICAL HISTORY: Tonsillectomy. SOCIAL HISTORY: The patient lives at home with her who is at bedside. ALLERGIES: NO KNOWN DRUG ALLERGIES. PHYSICAL EXAMINATION: VITAL SIGNS: Temperature 98.8, pulse 73, respirations 18, oxygen saturation 99 % on 2 L nasal cannula, blood pressure 112/57. PRIMARY SURVEY: Airway intact. Adequate breath sounds bilaterally. 2+ pulses in bilateral radials, femorals and DPs. GCS 15. Gross motor and sensation intact. No lacerations, bruising or external bleeding. SECONDARY SURVEY: HEAD: Normocephalic, atraumatic. No gross palpable skull deformities or tenderness. EYES: Pupils 3-2, equal, round, reactive to light bilaterally. ENT: No hemotympanum. No epistaxis. No septal hematoma. Midface stable to manipulation. No blood in the oropharynx. Dentition is intact. No anterior neck injury/crepitus/tenderness. C-SPINE: No step-offs or deformities, nontender. C-collar not in place. CHEST: Nontender. No crepitus, no abrasions or ecchymosis. Equal chest motion. ABDOMEN: Soft, nontender, nondistended. PELVIS: Stable to palpation, nontender. No abrasions or ecchymosis noted. RECTAL: Deferred. GENITOURINARY: Deferred. EXTREMITIES: No gross deformities. No abrasions or ecchymosis noted. 2+ pulses in the bilateral radials, femorals, and DPs. Tenderness over the right humerus without any deformity. BACK/SPINE: No step-offs or deformities or tenderness to palpation of the thoracic or lumbar spine. No abrasions or ecchymosis noted. NEUROLOGIC: 5/5 strength in bilateral advertising strategist, plantar flexion, dorsiflexion. Gross normal sensation x4 extremities. LABORATORY FINDINGS: White count 14.6, hemoglobin 10.7, hematocrit 33.8, platelets 245. Sodium 133, potassium 4.2, chloride 103, bicarb 21, BUN 24, creatinine 0.96, glucose 313, magnesium 2.6, BNP 299. DIAGNOSTIC FINDINGS: CT of the abdomen and pelvis demonstrates no acute traumatic abnormalities of the abdomen and pelvis. It is revealing bilateral sacral alar insufficiency fractures, intact ischial spine, high-grade facet arthropathy of the lower lumbar spine and grade 1 L3 over L4 and L4 over L5 anterior listhesis with broad disk protrusion causing high-grade neuroforaminal narrowing. CT of the brain demonstrates no acute intracranial abnormalities. Chest x-ray demonstrates concern for left scapular body fracture, age- indeterminate right lateral 6th rib fracture. X-ray of the pelvis demonstrates lucency through the right ischial spine, may be positional due to rightward patient positioning. The reminder of the pelvis appears without fracture, subluxation of what appears to be L3 over L4 could be chronic, degenerative in nature. Lumbosacral transitional vertebra, sclerosis of the left S1 may reflect a healing chronic insufficiency fracture versus a dense vascular calcification. CT of the C-spine demonstrates no acute cervical spinal fracture, soft tissue edema around T2 vertebral body which appears to be an old compression deformity with 50% height loss with a relatively acute-appearing coronary oriented fracture through the anterior 20% of the vertebral body. X-ray of the right shoulder demonstrates limited examination due to kyphosis and osteoporosis. No acute degenerative fractures or malalignment of the right shoulder. Old right mid clavicular fracture. X-ray of the right ribs demonstrates multiple old fractures as detailed above. X-ray of the left scapula demonstrates finding concerning for acute fracture of the left scapula. This could be best assessed via CT. ASSESSMENT: 1. Status post mechanical fall from standing. 2. Multiple right-sided old rib fractures. 3. Left-sided scapular body fracture. 4. T12 compression fracture, subacute. 5. History of hypertension, atrial fibrillation, diabetes, Parkinson's, hypothyroidism, multiple recent falls, and unsteady gait. RECOMMENDATIONS: Continue pain control for multiple fractures. Neurosurgery has been consulted for the patient's T12 compression fracture and recommended a CTLSO brace to be worn when the patient is up out of bed. I was at the bedside at the time of my evaluation, chronic L-spine foraminal narrowing. Does not warrant any acute workup. I did speak to Neurosurgery about these findings. They reported that it can be addressed on the followup visit with Neurosurgery once the patient is discharged. Dr. Allen of Orthopedic Surgery has been consulted for the patient's left scapular body fracture. He will see the patient. In the meantime, the patient is to wear a sling to the left upper extremity for comfort. The patient's rib fractures are old, but she will benefit from incentive spirometry use q.1 hour while awake. I have also ordered physical therapy for the patient and she can be up out of bed when the hospitalist team designates that it is safe for her to do so in regard to her medical conditions. Pain control per Primary Team, but Trauma Services recommend Tylenol 1 g q.6 hours scheduled, ibuprofen 600 mg q.8 hours scheduled and tramadol p.r.n. for pain. The patient may also benefit from p.r.n. Flexeril if pain management becomes difficult. Trauma Team will continue to evaluate the patient. This patient was discussed with Dr. Perkins before this dictation. Job ID: [id number] [facility]
[2019-03-01] MEDS: cefTRIAXone\\ROCEPHIN 1 GM in Sodium Chloride 0.9% 100 ML IVPB SCH (20:44)
[2019-03-01] MEDS: Metoprolol Tartrate 25 MG TAB PO SCH (20:46)
[2019-03-01] MEDS: Senokot S 8.6-50 MG TAB PO SCH (20:46)
[2019-03-01] MEDS: Carbidopa/Levodopa CR 50-200 mg Tablet PO SCH (21:00)
[2019-03-01] MEDS: Acetaminophen 325 MG TAB PO SCH (21:05)
[2019-03-01] MEDS: Ibuprofen 600 MG TAB PO SCH (21:05)
--- NOTE | 2019-03-01 21:10 | PRG ---
DATE OF SERVICE: 03/01/2019 SUBJECTIVE: This is a 78-year-old female status post mechanical fall, who is being seen in consultation for an acute scapular fracture and multiple old right-sided rib fractures as well as a subacute T12 compression fracture. This evening, the patient reports that she is having significant pain with any type of movement or mobility. The nurses at bedside report pain was relatively well controlled until they tried to turn her. OBJECTIVE: VITAL SIGNS: Reviewed and as documented in the electronic medical record. GENERAL: Elderly appearing female, in no acute distress resting in bed. PULMONARY: Normal work of breathing. Symmetric rise. CARDIOVASCULAR: Pulses 2+ bilaterally. ABDOMEN: Soft, nontender, and nondistended. MUSCULOSKELETAL: Left upper extremity sling is in place. Moves all extremities x4. NEURO: No focal deficit is noted. ASSESSMENT: 1. Status post mechanical fall. 2. Multiple right-sided old rib fractures. 3. Left scapular body fracture. 4. T12 compression fracture, subacute. 5. History of hypertension, atrial fibrillation, diabetes, Parkinson's, hypothyroidism, multiple recent falls, and unsteady gait. PLAN: Continue left upper extremity sling for comfort. Followup Orthopedic evaluation. Continue incentive spirometry, pulmonary toileting, and physical therapy. As the patient's pain is somewhat uncontrolled, we will schedule Tylenol and ibuprofen at this time. All the patient's and nursing questions answered prior to this dictation. Job ID: [id number]
[2019-03-02] MEDS: Acetaminophen 325 MG TAB PO SCH ×4 (03:14→21:18)
[2019-03-02] MEDS: Ibuprofen 600 MG TAB PO SCH ×3 (03:15→21:18)
[2019-03-02 04:48] LABS: Anion Gap 11 mmol/L (10-20); BUN (Urea Nitrogen) 23 mg/dL (9.8-20.1); Calc. Creatinine Clearance 61 mL/min (70-130); Calcium 8.8 mg/dL (7.8-10.44); Carbon Dioxide 27 mmol/L (23-31); Chloride 102 mmol/L (98-107); Estimated GFR-MDRD 66; Glucose 152 mg/dL (83-110); Potassium 3.5 mmol/L (3.5-5.1); Sodium 136 mmol/L (136-145)
[2019-03-02 04:52] LABS: Troponin I Less than 0.010 ng/mL (< 0.028)
[2019-03-02 05:09] LABS: #Eosinphils 0.1 thou/uL (0.0-0.7); #Monocytes 1.1 thou/uL (0.11-0.59); #Neutrophils 7.9 thou/uL (1.40-6.50); %Basophils 0.3 % (0.0-1.0); %Eosinophils 1.4 % (0.0-10.0); %Lymphocytes 9.8 % (21.0-51.0); %Monocytes 11.2 % (0.0-10.0); %Neutrophils 77.3 % (42.0-75.0); Hemoglobin 10.6 g/dL (12.0-16.0); Mean Corpuscular HGB CONC 31.1 g/dL (32.0-36.0); Mean Corpuscular Hemoglobin 25.4 pg (27.0-31.0); Mean Corpuscular Volume 81.9 fL (78.0-98.0); Mean Platelet Volume 8.9 fL (7.4-10.4); Platelet Count 214 thou/uL (130-400); RBC Distribution Width 15.2 % (11.5-14.5); Red Blood Cell (RBC) Count 4.18 mill/uL (4.20-5.40); White Blood Cell (WBC) Count 10.2 thou/uL (4.8-10.8)
[2019-03-02] MEDS: Levothyroxine Sodium 100 MCG TAB PO SCH (06:21)
[2019-03-02] MEDS: Enoxaparin Sodium 40 MG/0.4 ML SYRINGE SC SCH (08:43)
[2019-03-02] MEDS: Aspirin Chewable 81 MG TAB PO SCH (08:43)
[2019-03-02] MEDS: Senokot S 8.6-50 MG TAB PO SCH ×2 (08:43→21:18)
[2019-03-02] MEDS: Metoprolol Tartrate 25 MG TAB PO SCH ×2 (08:44→21:18)
--- NOTE | 2019-03-02 09:35 | CON ---
DATE OF CONSULTATION: 03/02/2019 CONSULTING PHYSICIAN: Ferdinand Perkins MD HISTORY OF PRESENT ILLNESS: Ms. Fernández is a 78-year-old female at the ER with a mechanical fall. The patient is currently admitted to Medicine Service. This is a concern of loss of consciousness. She has a T2 compression fractures, consulted for her scapular body fracture, she has multiple rib fractures. PAST MEDICAL HISTORY: Hypertension, AFib, diabetes, Parkinson's, hypothyroidism , history of multiple falls, unsteady gait and uses a walker. PAST SURGICAL HISTORY: Tonsillectomy. MEDICATIONS: 1. Sinemet. 2. Insulin pump. 3. Synthroid. 4. Metoprolol. SOCIAL HISTORY: The patient lives at home with her who is the bedside. ALLERGIES: NO KNOWN DRUG ALLERGIES. PHYSICAL EXAMINATION: VITAL SIGNS: Temperature respiratory rate 18, oxygen saturation 94 on 2 L, and blood pressure 131/63. GENERAL: Somewhat arousable, female, in no acute distress. MUSCULOSKELETAL: The patient's focused exam neurovascularly intact distally. 2+ radial pulse. Pain with range of motion and shoulder tenderness along the medial border of her scapula. IMAGING STUDIES: X-rays of her left shoulder show a lateral border scapular fracture without extension into the glenoid. IMPRESSION: 1. Left scapular body fracture without extension into the glenoid. 2. Multiple rib fractures. 3. T12 compression fracture. 4. Multiple medical problems including Parkinson's, walker-bound. 5. Mechanical fall. PLAN: The patient will be placed in a sling. She can weight bear to the arm as tolerated. She may not be able to tolerate the sling given her walker status. She may follow up me in about 4 weeks for repeat evaluation. The patient will be treated conservatively given her medical history. Job ID: [id number] [facility]
--- NOTE | 2019-03-02 11:17 | PRG ---
DATE OF SERVICE: 03/02/2019 SUBJECTIVE: The patient was seen this morning asleep in bed. She was difficult to arouse, but appeared to be in no distress. The patient had a fentanyl patch on, I did ask the nurse to remove this as there is a concern that this was making her more drowsy. She has had no acute events overnight. OBJECTIVE: VITAL SIGNS: Temperature 99.1, pulse 90, respirations 18, oxygen saturation 94% on 2 L nasal cannula, blood pressure 131/63. GENERAL: Elderly female, lying in bed with no signs of acute distress. PULMONARY: Equal chest rise and fall. Clear breath sounds bilaterally. No signs of acute respiratory distress. CARDIAC: Regular rate and rhythm. No murmurs, gallops, or rubs. GI: Abdomen is soft, nontender, and nondistended. EXTREMITIES: 2+ pulses in all extremities. Gross motor and sensation are intact. LABORATORY FINDINGS: White count 10.2, hemoglobin 10.6, hematocrit 34.3, platelets 214. Sodium 136, potassium 3.5, chloride 102, bicarb 27, BUN 23, creatinine 0.84, and glucose 150. DIAGNOSTIC FINDINGS: There are no new diagnostic findings to report. ASSESSMENT: 1. Status post mechanical fall from standing. 2. Multiple right-sided old rib fractures. 3. Left-sided scapular body fracture, nonoperative. 4. T12 compression fracture, subacute. 5. History of hypertension, atrial fibrillation, diabetes, Parkinson's, hypothyroidism, multiple recent falls, and unsteady gait. 6. Urinary tract infection with associated encephalopathy. PLAN: The patient was seen by Dr. Allen today for the scapular fracture. He reports he will treat it conservatively and to continue wearing the sling. Continue the CTLSO brace per Neurosurgery recommendations when the patient is up and out of bed. The patient was more sleepy today than yesterday. I did discontinue the fentanyl patch. It is recommended that the patient be treated with scheduled Tylenol and ibuprofen and p.r.n. tramadol for pain, but we will defer these order changes to the primary team as they feel would be appropriate. It is our recommendation also that we continue physical and occupational therapy. She will likely need placement in a fdc facility. This patient was discussed with Dr. Perkins this morning and will be discussed with Dr. Hudson after this dictation. Job ID: [id number]
[2019-03-02] MEDS ORDERED: traMADol HCl 50 MG TAB PO PRN (13:32)
[2019-03-02] MEDS: Gabapentin 100 MG CAP PO SCH ×2 (14:06→21:18)
[2019-03-02] MEDS ORDERED: HYDROcodone/Acetaminophen 5/325 mg Tablet PO PRN (17:59)
--- NOTE | 2019-03-02 18:05 | PDOC.HOSPP ---
- Subjective Subjective: Seen and examined. Patient's at bedside, all questions answered in detail. Patient somnolent on fentanyl patch, slept through breakfast. Has not moved around much for work with therapy. Recommended medical management alone and no surgical intervention. Patient will require subacute placement. On antibiotics for UTI. - Objective Vital Signs & Weight: Vital Signs (12 hours) Temp Pulse Pulse Pulse Resp BP BP 03/02/19 14:38 80 77 144/66 H 03/02/19 11:00 98.4 F 78 16 03/02/19 07:00 99.1 F 90 18 03/02/19 06:21 194/78 H BP BP Pulse Ox 03/02/19 14:38 147/67 H 03/02/19 11:00 129/59 L 95 03/02/19 07:00 131/63 94 L 03/02/19 06:21 Weight Weight 148 lb 6.4 oz I&O: 03/01/19 03/02/19 03/03/19 06:59 06:59 06:59 Intake Total 220 Output Total 1200 250 Balance -1200 -30 Result Diagrams: 03/02/19 03:55 03/02/19 03:55 Additional Labs: Accuchecks 03/02/19 03/02/19 03/01/19 11:57 05:54 20:06 POC Glucose 173 H 150 H 120 H Radiology Reviewed by me: Yes Hospitalist ROS - Review of Systems All other systems reviewed; all pertinent +/- noted in HPI/Subj - Medication Medications: Active Medications Generic Name Dose Route Start Last Admin Trade Name Freq PRN Reason Stop Dose Admin Acetaminophen 650 mg 03/01/19 20:45 03/02/19 14:05 Tylenol PO 650 mg Q6H ROSELYN Administration Aspirin 81 mg 03/01/19 09:00 03/02/19 08:43 Aspirin Chewable PO 81 mg DAILY ROSELYN Administration Carbidopa/Levodopa 0.5 tab 03/01/19 22:00 03/01/19 21:00 Sinemet Cr 50/200 PO 0.5 tab 2200 ROSELYN Administration Clonidine 0.1 mg 03/01/19 11:12 03/02/19 06:21 Catapres PO 0.1 mg Q4H PRN Administration SBP > 160 use second Enoxaparin Sodium 40 mg 03/01/19 09:00 03/02/19 08:43 Lovenox SC 40 mg 0900 ROSELYN Administration Gabapentin 100 mg 03/02/19 15:00 03/02/19 14:06 Neurontin PO 100 mg TID ROSELYN Administration Hydralazine HCl 10 mg 03/01/19 11:12 03/02/19 04:39 Apresoline SLOW IVP 10 mg Q6H PRN Administration SBP GREATER THAN 160 Ceftriaxone Sodium 1 gm/ 100 mls @ 200 mls/hr 03/01/19 20:00 03/01/19 20:44 Sodium Chloride IVPB 100 mls 2000 ROSELYN Administration Ibuprofen 600 mg 03/01/19 20:45 03/02/19 14:05 Motrin PO 600 mg Q8H ROSELYN Administration Levothyroxine Sodium 100 mcg 03/01/19 06:00 03/02/19 06:21 Synthroid PO 100 mcg 0600 ROSELYN Administration Metoprolol Tartrate 25 mg 03/01/19 21:00 03/02/19 08:44 Lopressor PO 25 mg BID ROSELYN Administration Pantoprazole Sodium 40 mg 03/02/19 09:00 03/02/19 08:43 Protonix PO 40 mg DAILY ROSELYN Administration Senna/Docusate Sodium 1 tab 03/01/19 21:00 03/02/19 08:43 Senokot S PO 1 tab BID ROSELYN Administration - Exam General Appearance: NAD, awake alert Eye: anicteric sclera ENT: normocephalic atraumatic, moist mucosa Neck: supple, symmetric, no lymphadenopathy Heart: no murmur, no gallops, no rubs Respiratory: CTAB, no wheezes, no rales, no ronchi Gastrointestinal: soft, non-tender, non-distended, no guarding, no rigidity Extremities: no clubbing, no edema Skin: no lesions, no rashes Neurological: cranial nerve grossly intact Musculoskeletal: normal strength, no muscle wasting Psychiatric: oriented to person, oriented to place, somnolent Hosp A/P (1) Fall (on) (from) other stairs and steps, initial encounter Code(s): W10.8XXA - FALL (ON) (FROM) OTHER STAIRS AND STEPS, INITIAL ENCOUNTER Status: Acute (2) Scapula fracture Code(s): S42.109A - FRACTURE OF UNSP PART OF SCAPULA, UNSP SHOULDER, INIT Status: Acute (3) Compression fracture Code(s): HBZ0495 - Status: Acute (4) Atrial fibrillation with rapid ventricular response Code(s): I48.91 - UNSPECIFIED ATRIAL FIBRILLATION Status: Acute (5) Urinary tract infection Status: Acute (6) Atrial fibrillation Code(s): I48.91 - UNSPECIFIED ATRIAL FIBRILLATION Status: Chronic (7) DM type 2 (diabetes mellitus, type 2) Status: Chronic 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: 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: with senior care use (8) Frequent falls Code(s): R29.6 - REPEATED FALLS Status: Chronic (9) Hypothyroidism Code(s): E03.9 - HYPOTHYROIDISM, UNSPECIFIED Status: Chronic (10) Parkinson's disease Code(s): G20 - PARKINSON'S DISEASE Status: Chronic - Plan Plan: medical unit with telemetry neurosurgery consultation, recommendations appreciated no surgical intervention medical management orthopedic surgery consultation, recommendations appreciated no surgical intervention medical management physical therapy/occupational therapy evaluation treatment pain control CTLSO brace while out of bed arm sling or scapula fracture weight-bearing as tolerated continue home medications as able DVT prophylaxis
[2019-03-02] MEDS ORDERED: Potassium Chloride 40 MEQ in Sodium Chloride 0.45% 1,000 ML IV SCH (19:00)
[2019-03-02] MEDS: cefTRIAXone\\ROCEPHIN 1 GM in Sodium Chloride 0.9% 100 ML IVPB SCH (21:07)
[2019-03-02] MEDS: Carbidopa/Levodopa CR 50-200 mg Tablet PO SCH (21:18)
[2019-03-03] MEDS: Acetaminophen 325 MG TAB PO SCH ×4 (03:30→21:00)
[2019-03-03] MEDS: Ibuprofen 600 MG TAB PO SCH ×3 (04:41→20:57)
[2019-03-03] MEDS: Levothyroxine Sodium 100 MCG TAB PO SCH (04:41)
[2019-03-03 04:47] LABS: #Eosinphils 0.3 thou/uL (0.0-0.7); #Lymphocytes 1.3 thou/uL (1.20-3.40); #Monocytes 0.9 thou/uL (0.11-0.59); #Neutrophils 3.8 thou/uL (1.40-6.50); %Eosinophils 5.1 % (0.0-10.0); %Lymphocytes 21.1 % (21.0-51.0); %Monocytes 13.6 % (0.0-10.0); %Neutrophils 60.1 % (42.0-75.0); Hemoglobin 10.8 g/dL (12.0-16.0); Mean Corpuscular HGB CONC 31.6 g/dL (32.0-36.0); Mean Corpuscular Hemoglobin 25.7 pg (27.0-31.0); Mean Corpuscular Volume 81.3 fL (78.0-98.0); Mean Platelet Volume 8.9 fL (7.4-10.4); Platelet Count 217 thou/uL (130-400); RBC Distribution Width 15.2 % (11.5-14.5); White Blood Cell (WBC) Count 6.4 thou/uL (4.8-10.8)
[2019-03-03 05:40] LABS: Anion Gap 12 mmol/L (10-20); BUN (Urea Nitrogen) 28 mg/dL (9.8-20.1); Calc. Creatinine Clearance 47 mL/min (70-130); Calcium 8.9 mg/dL (7.8-10.44); Carbon Dioxide 27 mmol/L (23-31); Chloride 100 mmol/L (98-107); Estimated GFR-MDRD 49; Glucose 174 mg/dL (83-110); Potassium 3.9 mmol/L (3.5-5.1); Sodium 135 mmol/L (136-145)
[2019-03-03] MEDS: Gabapentin 100 MG CAP PO SCH ×3 (09:25→20:55)
[2019-03-03] MEDS: Senokot S 8.6-50 MG TAB PO SCH ×2 (09:25→20:55)
[2019-03-03] MEDS: Metoprolol Tartrate 25 MG TAB PO SCH ×2 (09:25→20:55)
[2019-03-03] MEDS: Aspirin Chewable 81 MG TAB PO SCH (09:25)
[2019-03-03] MEDS: Enoxaparin Sodium 40 MG/0.4 ML SYRINGE SC SCH (09:26)
--- NOTE | 2019-03-03 10:25 | PRG ---
DATE OF SERVICE: 03/03/2019 SUBJECTIVE: Ms. Fernández is a 78-year-old woman, post injury day #3, status post ground level fall. The patient sustained multiple traumatic injuries including multiple right rib fractures, left scapular fracture and subacute T12 spinal fracture. Spinal fracture has been managed with a TLSO brace when out of bed. The patient has been seen by Orthopedic Surgery with regard to the left scapular fracture. Operative management is also recommended. The patient was initially quite sleepy, as a result multiple opioid analgesics were discontinued. This morning, she is more awake and alert. is at bedside and trying to feed her. The patient reports good pain control. OBJECTIVE: VITAL SIGNS: This morning include blood pressure 157/66, pulse 88 and irregular, respiratory rate is 18, temperature 97.9 degrees Fahrenheit, oxygen saturation 98% on 2 L by nasal cannula oxygen. HEART: Reveals irregular rate and rhythm. LUNGS: Clear to auscultation bilaterally. Breathing regular and nonlabored. ABDOMEN: Soft, nontender, and nondistended. EXTREMITIES: Reveal 2+ radial pulses bilaterally. NEUROLOGIC: Reveals no focal deficits present. LABORATORY FINDINGS: Include a CBC with 6400 white blood cells, hemoglobin and hematocrit 10.8 and 34.1 respectively. Platelet count is 217,000. Metabolic profile: Sodium 135, potassium 3.9, chloride is 100, bicarb is 27, BUN is 28, creatinine is 1.09, glucose 174. IMPRESSIONS: Post injury day #3. 1. Status post ground level fall. 2. Multiple right rib fractures. 3. Left scapular fracture. 4. Subacute T12 spinal fracture. PLAN: 1. Increase activity per Physical and Occupational Therapy. 2. We will ask PM and R to evaluate the patient for possible inpatient rehabilitation post discharge. 3. The patient is certainly neurologically and hemodynamically stable for transfer to general surgical floor. Above findings and plan discussed with the patient and her at bedside. Answered their questions. Job ID: [id number]
[2019-03-03] MEDS: traMADol HCl 50 MG TAB PO PRN (17:12)
--- NOTE | 2019-03-03 17:37 | PDOC.HOSPP ---
- Subjective Encounter Date: 03/03/19 Encounter Time: 17:15 Subjective: f/u for groung level fall with acute/subacute rib fx, L scapular and T12 compression fx. Pain improved but remains stiff and not restarted on her regular dosing of Sinemet. Plan for rehab/SNF after d/c. - Objective Vital Signs & Weight: Vital Signs (12 hours) Temp Pulse Resp BP Pulse Ox 03/03/19 16:00 98.5 F 79 18 156/80 H 95 03/03/19 12:20 98.3 F 72 16 153/85 H 97 03/03/19 11:44 98.3 F 73 13 140/65 95 03/03/19 08:00 96 03/03/19 07:00 98.9 F 69 18 130/60 96 Weight Weight 148 lb 9 oz I&O: 03/02/19 03/03/19 03/04/19 06:59 06:59 06:59 Intake Total 220 800 Output Total 375 300 Balance -155 500 Result Diagrams: 03/03/19 03:52 03/03/19 03:52 Additional Labs: Accuchecks 03/03/19 03/03/19 03/03/19 16:35 12:18 10:48 POC Glucose 288 H 231 H 237 H 03/03/19 03/02/19 03/02/19 05:38 23:02 20:46 POC Glucose 189 H 174 H 162 H 03/02/19 03/02/19 19:00 18:03 POC Glucose 84 115 H Microbiology 02/28/19 18:36 Urine clean catch Urine Culture - Final NO GROWTH AT 48 HOURS 03/01/19 15:14 Venous blood - Right Hand Blood Culture - Preliminary NO GROWTH AT 48 HOURS 03/01/19 13:51 Venous blood - Right Hand Blood Culture - Preliminary NO GROWTH AT 48 HOURS Hospitalist ROS - Medication Medications: Active Medications Generic Name Dose Route Start Last Admin Trade Name Freq PRN Reason Stop Dose Admin Acetaminophen 650 mg 03/01/19 20:45 03/03/19 15:13 Tylenol PO 650 mg Q6H ROSELYN Administration Aspirin 81 mg 03/01/19 09:00 03/03/19 09:25 Aspirin Chewable PO 81 mg DAILY ROSELYN Administration Clonidine 0.1 mg 03/01/19 11:12 03/02/19 06:21 Catapres PO 0.1 mg Q4H PRN Administration SBP > 160 use second Enoxaparin Sodium 40 mg 03/01/19 09:00 03/03/19 09:26 Lovenox SC 40 mg 0900 ROSELYN Administration Gabapentin 100 mg 03/02/19 15:00 03/03/19 15:13 Neurontin PO 100 mg TID ROSELYN Administration Hydralazine HCl 10 mg 03/01/19 11:12 03/02/19 04:39 Apresoline SLOW IVP 10 mg Q6H PRN Administration SBP GREATER THAN 160 Ceftriaxone Sodium 1 gm/ 100 mls @ 200 mls/hr 03/01/19 20:00 03/02/19 21:07 Sodium Chloride IVPB 100 mls 2000 ROSELYN Administration Ibuprofen 600 mg 03/01/19 20:45 03/03/19 13:46 Motrin PO 600 mg Q8H ROSELYN Administration Levothyroxine Sodium 100 mcg 03/01/19 06:00 03/03/19 04:41 Synthroid PO 100 mcg 0600 ROSELYN Administration Metoprolol Tartrate 25 mg 03/01/19 21:00 03/03/19 09:25 Lopressor PO 25 mg BID ROSELYN Administration Pantoprazole Sodium 40 mg 03/02/19 09:00 03/03/19 09:25 Protonix PO 40 mg DAILY ROSELYN Administration Senna/Docusate Sodium 1 tab 03/01/19 21:00 03/03/19 09:25 Senokot S PO 1 tab BID ROSELYN Administration Tramadol HCl 50 mg 03/02/19 13:32 03/03/19 17:12 Ultram PO 50 mg Q6H PRN Administration Moderate Pain (4-6) - Exam General Appearance: awake alert General - other findings: smiles Eye: PERRL, anicteric sclera ENT: normocephalic atraumatic, no oropharyngeal lesions Neck: supple, symmetric, no JVD, no thyromegaly Heart: RRR, no murmur, no gallops, no rubs Respiratory: CTAB, no wheezes, no rales, no ronchi Gastrointestinal: soft, non-tender, non-distended, normal bowel sounds Extremities: no cyanosis, no clubbing Skin: normal turgor, no lesions Neurological: cranial nerve grossly intact, no new deficit Neurological - other findings: bradykinesia Musculoskeletal: generalized weakness Psychiatric: oriented to person, oriented to place, oriented to time Hosp A/P (1) Compression fracture Code(s): [id number] - Status: Acute Plan: s/p fall, likely subacute, plan for CTLSO brace, no surgery, pain control (2) Fall (on) (from) other stairs and steps, initial encounter Code(s): W10.8XXA - FALL (ON) (FROM) OTHER STAIRS AND STEPS, INITIAL ENCOUNTER Status: Acute Plan: PT/OT, SNF options (3) Scapula fracture Code(s): S42.109A - FRACTURE OF UNSP PART OF SCAPULA, UNSP SHOULDER, INIT Status: Acute Plan: See above #1 (4) Acute metabolic encephalopathy Code(s): G93.41 - METABOLIC ENCEPHALOPATHY Status: Acute Plan: Likely multifactorial, limit narcotics, re-orientation techniques (5) DM type 2 (diabetes mellitus, type 2) Status: Chronic Qualifiers: Diabetes mellitus medical terminologist insulin use: with senior living use Plan: Insulin pump, serial accuchecks (6) Parkinson's disease Code(s): G20 - PARKINSON'S DISEASE Status: Chronic Plan: Resume Sinemet TID - Plan plan discussed w/ family, continue antibiotics, PT/OT, 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
[2019-03-03] MEDS ORDERED: HYDROcodone/Acetaminophen 5/325 mg Tablet PO PRN (17:38)
[2019-03-03] MEDS ORDERED: Carbidopa/Levodopa CR 50-200 mg Tablet PO SCH (18:45)
[2019-03-03] MEDS: Carbidopa/Levodopa CR 50-200 mg Tablet PO SCH (18:47)
[2019-03-03] MEDS: cefTRIAXone\\ROCEPHIN 1 GM in Sodium Chloride 0.9% 100 ML IVPB SCH (20:54)
[2019-03-03] MEDS ORDERED: Carbidopa/Levodopa 25-100 mg Tablet PO SCH ×2 (21:00)
[2019-03-03] MEDS: Cyclobenzaprine 10 MG TAB PO PRN (21:14)
--- NOTE | 2019-03-04 00:10 | PRG ---
DATE OF SERVICE: 03/03/2019 SUBJECTIVE: The patient is currently on the surgical floor. She is status post ground level fall, which she was admitted for multiple medical reasons, but during her evaluation, it was noted that she had what appeared to be an acute on chronic T2 vertebral body compression fracture that per discussion with Neurosurgery, their plan is to manage this nonoperatively with a CTLSO brace when out of bed. The patient also had what appeared to be subacute or chronic rib fractures. Also, we have been asked to see the patient in consultation for pain control for traumatic injuries and the primary team will manage her medical problems. The patient currently has her pain controlled. She is tolerating a diet and has been fitted with her brace. OBJECTIVE: VITAL SIGNS: Stable. The patient is afebrile. GENERAL: She appears in no distress. RESPIRATIONS: Nonlabored. EXTREMITIES: She moves all extremities without difficulty. ASSESSMENT: 1. Status post fall. 2. Acute left scapular fracture, treated with sling. 3. Acute on chronic T2 compression fracture, treated with brace. 4. Subacute right rib fractures treated with pain control. PLAN: Plan will be to continue pain control. Encouraged Physical and Occupation Therapy placement and medical management per the primary team. Job ID: [id number]
[2019-03-04] MEDS: Acetaminophen 325 MG TAB PO SCH ×4 (04:43→20:45)
[2019-03-04] MEDS: Ibuprofen 600 MG TAB PO SCH ×2 (04:44→11:05)
[2019-03-04] MEDS: Levothyroxine Sodium 100 MCG TAB PO SCH (04:44)
[2019-03-04] MEDS: Cyclobenzaprine 10 MG TAB PO PRN (05:23)
[2019-03-04] MEDS: traMADol HCl 50 MG TAB PO PRN (05:37)
[2019-03-04 05:57] LABS: Anion Gap 13 mmol/L (10-20); BUN (Urea Nitrogen) 26 mg/dL (9.8-20.1); Calc. Creatinine Clearance 59 mL/min (70-130); Calcium 8.6 mg/dL (7.8-10.44); Carbon Dioxide 23 mmol/L (23-31); Chloride 103 mmol/L (98-107); Estimated GFR-MDRD 64; Glucose 136 mg/dL (83-110); Sodium 135 mmol/L (136-145)
[2019-03-04 07:09] LABS: Band 4 % (5-11); Eosinophils 4 % (0-10); Lymphocytes 17 % (21-51); MDiff Complete? YES; Mean Corpuscular HGB CONC 31.6 g/dL (32.0-36.0); Mean Corpuscular Hemoglobin 25.8 pg (27.0-31.0); Mean Corpuscular Volume 81.8 fL (78.0-98.0); Mean Platelet Volume 8.8 fL (7.4-10.4); Monocytes 20 % (0-10); Neutrophil 53 % (42-75); Platelet Count 157 thou/uL (130-400); RBC Distribution Width 15.5 % (11.5-14.5); Red Blood Cell (RBC) Count 4.63 mill/uL (4.20-5.40); White Blood Cell (WBC) Count 5.5 thou/uL (4.8-10.8)
[2019-03-04] MEDS: Aspirin Chewable 81 MG TAB PO SCH (08:08)
[2019-03-04] MEDS: Enoxaparin Sodium 40 MG/0.4 ML SYRINGE SC SCH (08:08)
[2019-03-04] MEDS: Senokot S 8.6-50 MG TAB PO SCH ×2 (08:08→20:45)
[2019-03-04] MEDS: Carbidopa/Levodopa CR 50-200 mg Tablet PO SCH ×3 (08:09→20:45)
[2019-03-04] MEDS: Metoprolol Tartrate 25 MG TAB PO SCH ×2 (08:09→20:45)
[2019-03-04] MEDS: Gabapentin 100 MG CAP PO SCH ×3 (08:09→20:45)
[2019-03-04] MEDS: traMADol HCl 50 MG TAB PO SCH ×2 (11:05→18:13)
--- NOTE | 2019-03-04 14:22 | PRG ---
DATE OF SERVICE: 03/04/2019 SUBJECTIVE: Ms. Fernández is a 78-year-old female, who is status post ground level fall. She sustained left scapula fracture, subacute T12 compression fracture, right rib fracture. She has been treated conservatively with the above injury. The patient is using TLSO brace for T12 compression fracture and wishes pain control. The patient reports she has been having pain with activity. She developed no fever or shortness of breath. She states she has not been working much with physical therapy due to pain and she has been tolerating with her regular diet. Her bowel regimen is normal. OBJECTIVE: GENERAL: The patient is lying in bed comfortable with no acute respiratory distress. VITAL SIGNS: Temperature 98, heart rate 85, respiratory rate 16, O2 saturation 94% on room air, blood pressure 170/95. LUNGS: Clear bilaterally. HEART: Regular rate and rhythm. ABDOMEN: Soft, nondistended. EXTREMITIES: Neurovascularly intact x4. ASSESSMENT: 1. Status post ground level fall. 2. Left scapula fracture. Conservative treatment, stable. 3. Subacute T12 compression fracture. Conservative treatment with TLSO brace. 4. Right rib fracture. Conservative treatment. PLAN: Plan will be continue supportive care. Continue pain control. We will add chest pain medication. Schedule tramadol. We will discontinue hydrocodone and add gabapentin 100 t.i.d. The patient will be working with PT/OT. Medicine Team is planning the patient's placement in a senior care facility or rehabilitation facility and from Trauma Surgery standpoint, the patient can be discharged if the patient have placement plan in place. Trauma Surgery will continue to follow up. Job ID: [id number]
[2019-03-04] MEDS ORDERED: Ibuprofen 600 MG TAB PO PRN (14:52)
--- NOTE | 2019-03-04 14:55 | PDOC.HOSPP ---
- Subjective Subjective: Seen and examined. Clinically improved from when I saw her last. Patient sitting up in bed about the her lunch. Breathing well on room air. Daughter at bedside, all questions answered in detail. I recommended continue to work with physical therapy and occupational therapy to regain her strength and independence. Planning for subacute placement. - Objective Vital Signs & Weight: Vital Signs (12 hours) Temp Pulse Resp BP Pulse Ox 03/04/19 11:40 98.1 F 85 16 170/95 H 94 L 03/04/19 08:00 95 03/04/19 07:15 98.1 F 80 14 169/88 H 95 03/04/19 04:00 97.8 F 75 16 157/75 H 95 Weight Weight 158 lb 12.8 oz I&O: 03/03/19 03/04/19 03/05/19 06:59 06:59 06:59 Intake Total 220 900 Output Total 375 400 Balance -155 500 Result Diagrams: 03/04/19 05:14 03/04/19 05:14 Additional Labs: Accuchecks 03/04/19 03/03/19 03/03/19 05:38 20:31 16:35 POC Glucose 141 H 247 H 288 H 03/03/19 10:48 POC Glucose 237 H Radiology Reviewed by me: Yes Hospitalist ROS - Review of Systems All other systems reviewed; all pertinent +/- noted in HPI/Subj - Medication Medications: Active Medications Generic Name Dose Route Start Last Admin Trade Name Freq PRN Reason Stop Dose Admin Acetaminophen 650 mg 03/01/19 20:45 03/04/19 08:08 Tylenol PO 650 mg Q6H ROSELYN Administration Aspirin 81 mg 03/01/19 09:00 03/04/19 08:08 Aspirin Chewable PO 81 mg DAILY ROSELYN Administration Carbidopa/Levodopa 1 tab 03/03/19 21:00 03/04/19 08:09 Sinemet Cr 50/200 PO 1 tab TID ROSELYN Administration Clonidine 0.1 mg 03/01/19 11:12 03/02/19 06:21 Catapres PO 0.1 mg Q4H PRN Administration SBP > 160 use second Cyclobenzaprine HCl 5 mg 03/02/19 13:32 03/04/19 05:23 Flexeril PO 5 mg TID PRN Administration Muscle Spasm Enoxaparin Sodium 40 mg 03/01/19 09:00 03/04/19 08:08 Lovenox SC 40 mg 0900 ROSELYN Administration Gabapentin 100 mg 03/02/19 15:00 03/04/19 08:09 Neurontin PO 100 mg TID ROSELYN Administration Hydralazine HCl 10 mg 03/01/19 11:12 03/02/19 04:39 Apresoline SLOW IVP 10 mg Q6H PRN Administration SBP GREATER THAN 160 Ceftriaxone Sodium 1 gm/ 100 mls @ 200 mls/hr 03/01/19 20:00 03/03/19 20:54 Sodium Chloride IVPB 100 mls 2000 ROSELYN Administration Levothyroxine Sodium 100 mcg 03/01/19 06:00 03/04/19 04:44 Synthroid PO 100 mcg 0600 ROSELYN Administration Metoprolol Tartrate 25 mg 03/01/19 21:00 03/04/19 08:09 Lopressor PO 25 mg BID ROSELYN Administration Pantoprazole Sodium 40 mg 03/02/19 09:00 03/04/19 08:09 Protonix PO 40 mg DAILY ROSELYN Administration Senna/Docusate Sodium 1 tab 03/01/19 21:00 03/04/19 08:08 Senokot S PO 1 tab BID ROSELYN Administration Tramadol HCl 50 mg 03/04/19 12:00 03/04/19 11:05 Ultram PO 50 mg Q6HR ROSELYN Administration - Exam General Appearance: NAD, awake alert Eye: PERRL, anicteric sclera ENT: normocephalic atraumatic, moist mucosa Neck: supple, symmetric, no lymphadenopathy Heart: no murmur, no gallops, no rubs Respiratory: CTAB, no wheezes, no rales Gastrointestinal: soft, non-tender, non-distended, no guarding, no rigidity Extremities: no clubbing, no edema Skin: no lesions, no rashes Neurological: cranial nerve grossly intact, normal sensation to touch, no focal deficits Musculoskeletal: generalized weakness Psychiatric: A&O x 3, flat affect Hosp A/P (1) Fall (on) (from) other stairs and steps, initial encounter Code(s): W10.8XXA - FALL (ON) (FROM) OTHER STAIRS AND STEPS, INITIAL ENCOUNTER Status: Acute (2) Scapula fracture Code(s): S42.109A - FRACTURE OF UNSP PART OF SCAPULA, UNSP SHOULDER, INIT Status: Acute (3) Compression fracture Code(s): XTX7209 - Status: Acute (4) Atrial fibrillation with rapid ventricular response Code(s): I48.91 - UNSPECIFIED ATRIAL FIBRILLATION Status: Acute (5) Urinary tract infection Status: Acute (6) Atrial fibrillation Code(s): I48.91 - UNSPECIFIED ATRIAL FIBRILLATION Status: Chronic (7) DM type 2 (diabetes mellitus, type 2) Status: Chronic Qualifiers: Diabetes mellitus jail insulin use: with jail use (8) Frequent falls Code(s): R29.6 - REPEATED FALLS Status: Chronic (9) Hypothyroidism Code(s): E03.9 - HYPOTHYROIDISM, UNSPECIFIED Status: Chronic (10) Parkinson's disease Code(s): G20 - PARKINSON'S DISEASE Status: Chronic - Plan Plan: medical unit with telemetry neurosurgery consultation, recommendations appreciated no surgical intervention medical management orthopedic surgery consultation, recommendations appreciated no surgical intervention medical management physical therapy/occupational therapy evaluation treatment - SNF placement pending pain control CTLSO brace while out of bed arm sling for scapula fracture weight-bearing as tolerated continue home medications as able DVT prophylaxis
[2019-03-04] MEDS: cefTRIAXone\\ROCEPHIN 1 GM in Sodium Chloride 0.9% 100 ML IVPB SCH (20:44)
[2019-03-05] MEDS: traMADol HCl 50 MG TAB PO SCH ×4 (00:03→18:01)
--- NOTE | 2019-03-05 00:42 | PRG ---
DATE OF SERVICE: 03/05/2019 SUBJECTIVE: The patient remains on the surgical floor. She is status post ground level fall, which she sustained an acute on chronic T2 vertebral body compression fracture that is being treated with a CTLSO brace when she is out of bed. The patient was actually admitted for multiple medical problems. We have been seeing her in consultation for pain management. Her current pain regimen appears to be effective. She is currently tolerating a diet and awaiting placement decision. OBJECTIVE: VITAL SIGNS: Stable. The patient appears in no distress. ASSESSMENT AND PLAN: 1. Status post fall. 2. Acute left scapular fracture, treated with sling. 3. Acute on chronic T2 compression fracture, treated with brace. 4. Subacute right rib fractures, treated with pain control. PLAN: Will be to continue current pain regimen. This can be carried on through her [facility] facility or [facility], whichever has been decided. The patient will follow up with Orthopedics in 2 to 3 weeks and also follow up with Neurosurgery per their instructions in 3 to 4 weeks. Job ID: [id number]
[2019-03-05] MEDS: Acetaminophen 325 MG TAB PO SCH ×3 (03:13→14:55)
[2019-03-05] MEDS: Levothyroxine Sodium 100 MCG TAB PO SCH (05:46)
[2019-03-05] MEDS: Gabapentin 100 MG CAP PO SCH ×2 (09:13→15:34)
[2019-03-05] MEDS: Carbidopa/Levodopa CR 50-200 mg Tablet PO SCH ×2 (09:13→15:34)
[2019-03-05] MEDS: Enoxaparin Sodium 40 MG/0.4 ML SYRINGE SC SCH (09:13)
[2019-03-05] MEDS: Metoprolol Tartrate 25 MG TAB PO SCH (09:13)
[2019-03-05] MEDS: Aspirin Chewable 81 MG TAB PO SCH (09:13)
[2019-03-05] MEDS: Senokot S 8.6-50 MG TAB PO SCH (09:14)
[2019-03-05 11:36] VITALS: TEMP 98.4
--- NOTE | 2019-03-05 13:09 | PDOC.HOSPP ---
- Subjective Subjective: Seen and examined. Patient remains profamily week and debilitated. Pending placement and retirement facility to continue inpatient physical therapy and occupational therapy. I called the patient's insurance at and left a voicemail stating that I was available to discuss patient status and placement at any time. This is the second voicemail I have left for insurance company. Patient with urinary tract infection who has failed outpatient antibiotics resulting in a fall with subsequent fractures of the spine with compression fracture at the level of tea to acute on chronic, left scapula fracture and right rib fracture. Patient working with physical therapy and only able to ambulate 50 feet with assistance. Patient is unstable to go home at this time. - Objective Vital Signs & Weight: Vital Signs (12 hours) Temp Pulse Resp BP Pulse Ox 03/05/19 11:33 98.4 F 90 15 142/70 H 95 03/05/19 08:42 96 03/05/19 07:45 97.5 F L 97 18 143/74 H 96 03/05/19 03:05 98.0 F 82 16 153/77 H 96 Weight Weight 158 lb 11.725 oz I&O: 03/04/19 03/05/19 03/06/19 06:59 06:59 06:59 Intake Total 900 1050 Output Total 400 500 Balance 500 550 Result Diagrams: 03/04/19 05:14 03/04/19 05:14 Radiology Reviewed by me: Yes Hospitalist ROS - Review of Systems All other systems reviewed; all pertinent +/- noted in HPI/Subj - Medication Medications: Active Medications Generic Name Dose Route Start Last Admin Trade Name Freq PRN Reason Stop Dose Admin Acetaminophen 650 mg 03/01/19 20:45 03/05/19 09:13 Tylenol PO 650 mg Q6H ROSELYN Administration Aspirin 81 mg 03/01/19 09:00 03/05/19 09:13 Aspirin Chewable PO 81 mg DAILY ROSELYN Administration Carbidopa/Levodopa 1 tab 03/03/19 21:00 03/05/19 09:13 Sinemet Cr 50/200 PO 1 tab TID ROSELYN Administration Clonidine 0.1 mg 03/01/19 11:12 03/02/19 06:21 Catapres PO 0.1 mg Q4H PRN Administration SBP > 160 use second Cyclobenzaprine HCl 5 mg 03/02/19 13:32 03/04/19 05:23 Flexeril PO 5 mg TID PRN Administration Muscle Spasm Enoxaparin Sodium 40 mg 03/01/19 09:00 03/05/19 09:13 Lovenox SC 40 mg 0900 ROSELYN Administration Gabapentin 100 mg 03/02/19 15:00 03/05/19 09:13 Neurontin PO 100 mg TID ROSELYN Administration Hydralazine HCl 10 mg 03/01/19 11:12 03/02/19 04:39 Apresoline SLOW IVP 10 mg Q6H PRN Administration SBP GREATER THAN 160 Ceftriaxone Sodium 1 gm/ 100 mls @ 200 mls/hr 03/01/19 20:00 03/04/19 20:44 Sodium Chloride IVPB 100 mls 2000 ROSELYN Administration Levothyroxine Sodium 100 mcg 03/01/19 06:00 03/05/19 05:46 Synthroid PO 100 mcg 0600 ROSELYN Administration Metoprolol Tartrate 25 mg 03/01/19 21:00 03/05/19 09:13 Lopressor PO 25 mg BID ROSELYN Administration Pantoprazole Sodium 40 mg 03/02/19 09:00 03/05/19 09:14 Protonix PO 40 mg DAILY ROSELYN Administration Senna/Docusate Sodium 1 tab 03/01/19 21:00 03/05/19 09:14 Senokot S PO 1 tab BID ROSELYN Administration Tramadol HCl 50 mg 03/04/19 12:00 03/05/19 05:47 Ultram PO 50 mg Q6HR ROSELYN Administration - Exam General Appearance: NAD, awake alert Eye: PERRL ENT: normocephalic atraumatic, moist mucosa Neck: supple, symmetric, no lymphadenopathy Heart: no murmur, no gallops, no rubs Respiratory: CTAB, no wheezes, no rales, no ronchi, normal chest expansion Gastrointestinal: soft, no guarding, no rigidity Extremities: no edema Skin: no lesions, no rashes Neurological: cranial nerve grossly intact, no focal deficits, no new deficit Musculoskeletal: generalized weakness Psychiatric: A&O x 3, flat affect Hosp A/P (1) Fall (on) (from) other stairs and steps, initial encounter Code(s): W10.8XXA - FALL (ON) (FROM) OTHER STAIRS AND STEPS, INITIAL ENCOUNTER Status: Acute (2) Scapula fracture Code(s): S42.109A - FRACTURE OF UNSP PART OF SCAPULA, UNSP SHOULDER, INIT Status: Acute (3) Compression fracture Code(s): AMP0198 - Status: Acute (4) Atrial fibrillation with rapid ventricular response Code(s): I48.91 - UNSPECIFIED ATRIAL FIBRILLATION Status: Acute (5) Urinary tract infection Status: Acute (6) Atrial fibrillation Code(s): I48.91 - UNSPECIFIED ATRIAL FIBRILLATION Status: Chronic (7) DM type 2 (diabetes mellitus, type 2) Status: Chronic Qualifiers: Diabetes mellitus senior living insulin use: with senior living use (8) Frequent falls Code(s): R29.6 - REPEATED FALLS Status: Chronic (9) Hypothyroidism Code(s): E03.9 - HYPOTHYROIDISM, UNSPECIFIED Status: Chronic (10) Parkinson's disease Code(s): G20 - PARKINSON'S DISEASE Status: Chronic - Plan Plan: medical/ surgical unit Patient with UTI who has failed outpatient antibiotics Responding to IV antibiotics De escalate to culture and sensitivity as able, Urine culture was non diagnostic - will repeat Acute UTI resulted in fall with numerous acute fractures neurosurgery consultation, recommendations appreciated no surgical intervention medical management orthopedic surgery consultation, recommendations appreciated no surgical intervention medical management physical therapy/occupational therapy evaluation treatment - SNF placement pending pain control CTLSO brace while out of bed arm sling for scapula fracture weight-bearing as tolerated continue home medications as able DVT prophylaxis
[2019-03-05 15:22] VITALS: BP 127/67
--- NOTE | 2019-03-05 16:19 | PRG ---
DATE OF SERVICE: 03/05/2019 SUBJECTIVE: Ms. Fernández is a 78-year-old female, status post ground level fall. She sustained left scapular fracture, subacute T12 compression fracture, and right rib fracture. She also has a history of atrial fibrillation, diabetes, hypothyroidism, Parkinson disease, and she has UTI. The patient has been conservatively for the above injury. She has been treated for urinary tract infection. Her diabetes is stable. The patient has been tolerating her regular diet, and the patient has been working with PT/OT. She will be discharged to a senior living home facility today. OBJECTIVE: GENERAL: The patient lying down in bed comfortable with no acute respiratory distress. VITAL SIGNS: Stable. LUNGS: Clear bilaterally. HEART: Regular rate and rhythm. ABDOMEN: Soft and nondistended. EXTREMITIES: Neurovascularly intact x4. NEUROLOGIC: No focal neurology deficits, status post ground level fall. ASSESSMENT: 1. Left scapular fracture, conservative treatment, stable. 2. Subacute T12 compression fracture, conservative treatment, stable. 3. Right rib fracture, conservative treatment, stable. 4. History of hypothyroidism, atrial fibrillation, and Parkinson's, conservative treatment, stable. PLAN: The patient will be discharged to a senior living facility today. Continue supportive care. Continue pain control. Continue DVT prophylaxis. The patient will continue working with PT/OT. The patient will be seeing Dr. Mriza lAlen in 10 days after discharge. The patient was seen and evaluated with Dr. Hudson on round this morning. Job ID: [id number]
--- NOTE | 2019-03-06 03:36 | PQF ---
JAIRON ROSENBERG ERIK [id number] CLINICAL DOCUMENTATION CLARIFICATION FORM: POST DISCHARGE Addendum to original discharge summary date: ____ Late entry note date: __ DATE: 03/06/19 ATTN: Sameer Snyder Please exercise your independent, professional judgment in responding to the clarification form. Clinical indicators are provided on the bottom of this form for your review Please check appropriate box(es): [ XX ] Sepsis due to UTI [ ] Severe sepsis with acute organ dysfunction of: (Examples: respiratory failure, encephalopathy, acute kidney failure, other) [ ] Septic Shock [ ] Localized infection without sepsis [ ] Other diagnosis [ ] Unable to determine In addition, please specify: Present on Admission (POA): [ XX ] Yes [ ] No [ ] Unable to determine For continuity of documentation, please document condition throughout progress notes and discharge summary. Thank You. CLINICAL INDICATORS - SIGNS / SYMPTOMS / LABS Laboratory Hematology 02/28 WBC 14.6 ED notes p4 02/28 Vital sign BP123/58, Pulse 120, Resp 18 H&P p1 03/01 Dr Villarreal She admits to recurrent dysuria Hospitalist H&P p1 03/01 Dr Partida Pt had a UTI last month treated with antibiotics by primary care. believes patient never quite recovered from this UTI despite treatment and has continued to have hallucinations and weakness Hospitalist PN p5 03/01 AMS secondary to metabolic encephalopathy and delirium from UTI' Hospitalist PN p5 03/01 Leukocytosis secondary to infection and fall RISK FACTORS H&P p3 03/01 78-year-old Female H&P p3 03/01 Urinary Tract Infection H&P p3 03/01 DM H&P p3 03/01 Parkinson Disease Hospitalist PN p5 03/01 Metabolic Encephalopathy TREATMENTS: JUN 17 IV Cefriaxone JUN 17 IV Fluids maintenance H&P p3 03/01 Obtain urine culture (This form is maintained as a part of the permanent medical record) 2014 [employer]. All Rights Reserved [email or web address] [not provided] MTDD
--- NOTE | 2019-03-06 14:33 | DIS ---
DATE OF ADMISSION: 03/01/2019 DATE OF DISCHARGE: 03/05/2019 REASON FOR HOSPITALIZATION: Fall. SIGNIFICANT FINDINGS: The patient was found to have urinary tract infection which has been refractory to oral antibiotics, she has failed outpatient therapy, and this has resulted in a fall. Fall has resulted in numerous fractures - please see full radiographic reports for details. PROCEDURES PERFORMED AND TREATMENTS RENDERED: The patient was admitted to medical unit with telemetry for maximum medical therapy. The patient was seen by Orthopedic Surgery, Neurosurgery, and trauma surgeon - please see full consultation, progress notes, and history and physical from all specialists for details. With maximum medical therapy, the patient was recommended no surgical intervention and pain control in addition to stabilizing braces and arm sling. The patient was recommended safe for discharge by all specialists. The patient was evaluated by Physical Therapy who recommended placement in care home facility, so that she may continue inpatient physical therapy and occupational therapy to regain her strength and independence. CONDITION ON DISCHARGE: Stable. SPECIFIC INSTRUCTIONS FOR THE PATIENT/FAMILY: 1. The patient was recommended to take all medications as directed, to be re-evaluated by admitting physician at [facility] bed where she will be receiving inpatient PT and OT Services. 2. The patient was recommended to complete a full course of physical therapy and occupational therapy to regain her strength and independence. 3. The patient was recommended to wear CTLSO brace as directed by Orthopedic Surgery and Neurosurgery. 4. The patient was recommended to wear arm sling as directed by Orthopedic Surgery. 5. The patient was recommended to follow up with all specialists including Neurosurgery, Orthopedic Surgery, Neurology, and all other specialists as directed in the upcoming weeks. 6. The patient was recommended to return to acute care hospital immediately if signs or symptoms return, worsen, or any other new symptoms occur. 7. The patient was recommended to complete a full course of IV antibiotics for resolution of urinary tract infection that has been refractory to outpatient antibiotic therapy. DISCHARGE MEDICATIONS: 1. Tylenol 650 mg one tablet p.o. q.6 hours p.r.n. pain or fever. 2. Aspirin 81 mg one tablet p.o. daily. 3. Dulcolax 10 mg p.o. daily p.r.n. constipation. 4. Carbidopa/levodopa 25/100 one tab p.o. t.i.d. 5. Carbidopa/levodopa controlled release 50/200 to take 0.5 tablets p.o. at bedtime. 6. Ceftriaxone 1 g IV infusion daily for the next 4 days. 7. Clonidine 0.1 mg one tablet p.o. q.4 hours p.r.n. blood pressure greater than 180 systolic. 8. Flexeril 5 mg one tablet p.o. t.i.d. p.r.n. muscle spasms. 9. Lovenox 40 mg one injection subcutaneously daily. 10. Gabapentin 100 mg one tablet p.o. t.i.d. 11. Glucagon 1 mg intramuscular injection p.r.n. hypoglycemia - use per protocol. 12. Ibuprofen 600 mg p.o. q.8 hours p.r.n. pain. 13. Insulin sliding scale - aggressive scale before meals and at bedtime. 14. Synthroid 100 mcg one tablet p.o. q.a.m. 15. Metoprolol tartrate 25 mg one tablet p.o. b.i.d. 16. Protonix 40 mg one tablet p.o. daily. 17. Senna/docusate 1 tablet p.o. b.i.d. 18. Tramadol 50 mg p.o. q.6 hours p.r.n. moderate pain. 19. Tramadol 100 mg p.o. q.6 hours p.r.n. severe pain. HOSPITAL COURSE: Ms. Fernández is a very pleasant 78-year-old female with past medical history of Parkinson disease, hypertension, hypothyroidism, GERD, and frequent urinary tract infection, who presents to [facility] 02/[facility] with a fall - please see full history and physical, consultation, progress notes, and radiographic imaging for details. The patient was recently diagnosed with urinary tract infection, was started on oral antibiotics; however, unfortunately, the oral antibiotics have not been improving her urinary tract infection symptoms, and she has failed outpatient management of urinary tract infection. Secondary to urinary tract infection, the patient had a fall from standing, which she fell back on the ground. The patient did suffer multiple fractures including rib fracture, scapular fracture, and acute spinal compression fracture. The patient was seen and evaluated by Neurosurgery and Orthopedic Surgery - please see full consultation and progress notes for details. Specialist recommending no surgical intervention and maximum medical therapy. The patient was evaluated by Physical Therapy and Occupational Therapy who stated that she would most benefit from subacute placement where she has been continued inpatient PT and OT Services. The patient was previously independent and she was ambulating with a walker alone. Due to the fact that the patient has failed outpatient antibiotics for urinary tract infection, I will continue IV antibiotics throughout her hospitalization and continue them while she is in [facility] bed and continuing PT and OT Services. The patient recommended safe for discharge by all specialists with close followup in the outpatient setting. The patient was recommended to follow up with all specialists in the upcoming weeks as directed. The patient was recommended to have a full course of IV antibiotics for resolution of urinary tract infection. The patient was recommended to take all medications as directed, to be re-evaluated by admitting physician at [facility]. The patient was recommended to return to acute care hospital immediately if signs or symptoms return, worsen, or any other new symptoms occur. Greater than 40 minutes spent coordinating care and discharge process for this patient. Job ID: [id number]
== END 2019-03-05 18:35 | disposition swing bed (61) | DRG 871 ==
LOC: ERS 17:21 → 2NO 03-01 01:38 → SJJU 03-03 11:57
PROVIDERS: ADMIT Internal Medicine; ATTEND Internal Medicine
DX: A41.9 Sepsis, unspecified organism (principal); G93.41 Metabolic encephalopathy; I50.31 Acute diastolic (congestive) heart failure; Z66 Do not resuscitate; S22.029A Unspecified fracture of second thoracic vertebra, initial encounter for closed fracture; N39.0 Urinary tract infection, site not specified; S22.31XA Fracture of one rib, right side, initial encounter for closed fracture; M84.48XA Pathological fracture, other site, initial encounter for fracture; S42.112A Displaced fracture of body of scapula, left shoulder, initial encounter for closed fracture; G20 Parkinson's disease; E11.9 Type 2 diabetes mellitus without complications; Z96.41 Presence of insulin pump (external) (internal); I48.91 Unspecified atrial fibrillation; R29.6 Repeated falls; W18.30XA Fall on same level, unspecified, initial encounter; I11.0 Hypertensive heart disease with heart failure; Z79.899 Other long term (current) drug therapy; Z79.4 Long term (current) use of insulin; Z79.890 Hormone replacement therapy
CPT/HCPCS: 36415; 36416; 70450; 71045; 72125; 72170; 74177; 80048; 80053; 81003; 81015; 83735; 83880; 84443; 84484; 85025; 87040; 87086; 93005; 93306; A4353; J0360; J0696; J1650; J1940; J2270; J3010; J3475; J3480; J3490; Q9967

== ENCOUNTER 2019-06-25 14:47 | Emergency (ER) | payer MEDICARE ==
--- NOTE | 2019-06-25 16:45 | RAD ---
EXAM: XR Humerus Lt 2 View STANDARD DATE: 06/25/2019 4:19 PM INDICATION: Left upper arm pain after fall COMPARISON: Left scapular radiograph dated March 01, 2019 FINDING: There is a comminuted proximal left humerus fracture. There is an incompletely healed gleno id neck and scapular body fracture. Visualized left lung is clear. IMPRESSION: 1. Acute comminuted, mildly displaced proximal left humerus fracture. 2. Incompletely healed the left glenoid neck and left scapular body fracture.
[2019-06-25] MEDS ORDERED: HYDROcodone/Acetaminophen 5/325 mg Tablet ONE (17:25)
--- NOTE | 2019-06-28 13:43 | EKG ---
Test Reason : FALL Blood Pressure : / mmHG Vent. Rate : 086 BPM Atrial Rate : 086 BPM P-R Int : 166 ms QRS Dur : 088 ms QT Int : 372 ms P-R-T Axes : 079 058 052 degrees QTc Int : 445 ms Normal sinus rhythm Normal ECG Confirmed by ANDRE ANGLIN M.D. ([id number]), supervising editor trailer JUANITO JUNG ([id number]) on 06/28/2019 1:42:45 PM Referred By: Confirmed By:ANDRE ANGLIN M.D.
== END 2019-06-25 18:09 | disposition home or self-care (01) ==
LOC: ERS 14:47
DX: S42.202A Unspecified fracture of upper end of left humerus, initial encounter for closed fracture (principal); I48.21 Permanent atrial fibrillation; E03.9 Hypothyroidism, unspecified; G20 Parkinson's disease; W17.89XA Other fall from one level to another, initial encounter
CPT/HCPCS: 24500; 93005

== ENCOUNTER 2019-11-12 00:04 | Observation (INO) | payer MEDICARE, OTHER ==
[2019-11-12] MEDS ORDERED: Ondansetron PF 4 MG/2 ML Vial ONE (00:23)
[2019-11-12 00:27] LABS: #Eosinphils 0.2 thou/uL (0.0-0.7); #Lymphocytes 0.9 thou/uL (1.20-3.40); #Monocytes 0.9 thou/uL (0.11-0.59); #Neutrophils 7.8 thou/uL (1.40-6.50); %Basophils 0.4 % (0.0-1.0); %Eosinophils 1.6 % (0.0-10.0); %Lymphocytes 9.1 % (21.0-51.0); %Monocytes 9.3 % (0.0-10.0); %Neutrophils 79.6 % (42.0-75.0); Hemoglobin 10.9 g/dL (12.0-16.0); Mean Corpuscular HGB CONC 29.8 g/dL (32.0-36.0); Mean Corpuscular Hemoglobin 24.8 pg (27.0-31.0); Mean Corpuscular Volume 83.3 fL (78.0-98.0); Mean Platelet Volume 8.4 fL (7.4-10.4); Platelet Count 288 thou/uL (130-400); RBC Distribution Width 18.2 % (11.5-14.5); White Blood Cell (WBC) Count 9.8 thou/uL (4.8-10.8)
[2019-11-12 00:33] LABS: PTT 20.6 sec (22.9-36.1); Prothrombin Time 13.6 sec (12.0-14.7)
[2019-11-12 00:41] LABS: ALT (SGPT) Less than 7 U/L (8-55); AST (SGOT) 17 U/L (5-34); Albumin 3.8 g/dL (3.4-4.8); Alkaline Phosphatase 124 U/L (40-110); Anion Gap 13 mmol/L (10-20); BUN (Urea Nitrogen) 18 mg/dL (9.8-20.1); Bilirubin, Total 0.4 mg/dL (0.2-1.2); CK (CPK) 68 U/L (29-168); Calc. Creatinine Clearance 0 mL/min (70-130); Calcium 8.9 mg/dL (7.8-10.44); Carbon Dioxide 25 mmol/L (23-31); Chloride 100 mmol/L (98-107); Estimated GFR-MDRD 69; Glucose 108 mg/dL (83-110); Potassium 3.8 mmol/L (3.5-5.1); Protein, Total 6.8 g/dL (6.0-8.3); Sodium 134 mmol/L (136-145)
[2019-11-12 00:48] LABS: Anisocytosis SLIGHT = 6-15 cells (100X) (0-5/hpf); Hypochromia SLIGHT = 6-15 cells (100X) (0-5/hpf); MDiff Complete? YES; Platelet Morphology Comment Appears Adequate; Target Cells SLIGHT = 2-5 cells (100X) (0-1/hpf)
[2019-11-12 01:01] LABS: Bilirubin Negative (Negative); Blood, Urine Negative (Negative); Clarity Clear (Clear); Glucose, Urine (Dipstick) Normal (Negative); Ketone, Urine Negative (Negative); Leukocyte 75 Leu/uL (Negative); Nitrite Negative (Negative); Protein, Urine (Dipstick) 10 mg/dL (Neg-Trace); Specific Gravity, Urine 1.026 (1.002-1.036); Squamous Epithelial 0-3 HPF (0-3); Urobilinogen Normal mg/dL (Less than 2); WBC/HPF 21-50 HPF (0-3)
[2019-11-12 01:04] LABS: CKMB 1.7 ng/mL (0-6.6)
[2019-11-12 01:09] LABS: Bacteria/HPF 1+ HPF (None Seen)
[2019-11-12] MEDS ORDERED: cefTRIAXone\\ROCEPHIN 2 GM VIAL ONE (01:27)
[2019-11-12 03:43] LABS: Troponin I 0.017 ng/mL (< 0.028)
[2019-11-12] MEDS ORDERED: Acetaminophen 650 MG Suppository PR PRN (04:00)
[2019-11-12 04:22] VITALS: BMI 23.1
--- NOTE | 2019-11-12 04:34 | PDOC.HHP ---
Hospitalist HPI - History of Present Illness "My stomach hurts" History of Present Illness: Patient brought in by EMS and reportedly found to be unresponsive/obtunded by family. Glucose was checked and low at 33. Per family the glucose was checked after dinner and it was in the 400s. She was apparently give 10 units of long acting insulin. The sudden drop in glucose was 30 min later according to ED notes. Patient received an amp of D50 with improvement in her mentation. Reportedly noted to have a right facial droop and right sided weakness. Currently patient complaining of abdominal discomfort. Also continues to say she needs to urinate. States she doesn't know why she is here. Also thinks she was brought in via bus. Denies any chest pain or shortness of breath. Denies having a headache. Difficulty with ROS due to AMS. ED COURSE: EKG: Heart rate 78, normal sinus rhythm, no acute ischemic changes, some motion artifact present, QTc 467. CT head reportedly negative. UA: Leukocyte 75, RBC 4-6, WBC 21-50, Bacteria 1+. Started on Rocephin in the ED as well as fluids. PAST MEDICAL HISTORY: 1. Parkinson's 2. Dementia. 3. Atrial fibrillation. 4. Diabetes mellitus. 5. Hypothyroidism. 6. C7 fracture PAST SURGICAL HISTORY: 1. Tonsillectomy SOCIAL HISTORY: Lives with her family. ALLERGIES: No Known Drug Allergies. CURRENT MEDICATIONS: Have not been verified. - Exam General - other findings: Awake, in discomfort, complaining of lower abdo pain Eye: anicteric sclera Eye - other findings: Maintains eyes closed, opens briefly on command ENT: normocephalic atraumatic, dry oral mucosa Neck: supple, symmetric, no lymphadenopathy Heart: RRR, normal peripheral pulses Respiratory: CTAB, no wheezes, no rales, no ronchi, normal chest expansion Gastrointestinal: soft, tender to palpation (suprapubic region, states she needs to urinate) Extremities: no edema Skin: normal turgor, no rashes Neurological - other findings: Difficult to assess due to AMS and discomfort, able to follow some commands Hospitalist Results - Labs Result Diagrams: 11/12/19 00:17 11/12/19 00:17 Lab results: WBC 9.8 thou/uL (4.8-10.8) 11/12/19 00:17 Hgb 10.9 g/dL (12.0-16.0) L 11/12/19 00:17 Hct 36.6 % (36.0-47.0) 11/12/19 00:17 MCV 83.3 fL (78.0-98.0) 11/12/19 00:17 Plt Count 288 thou/uL (130-400) 11/12/19 00:17 Neutrophils % 79.6 % (42.0-75.0) H 11/12/19 00:17 Sodium 134 mmol/L (136-145) L 11/12/19 00:17 Potassium 3.8 mmol/L (3.5-5.1) 11/12/19 00:17 Chloride 100 mmol/L (98-107) 11/12/19 00:17 Carbon Dioxide 25 mmol/L (23-31) 11/12/19 00:17 BUN 18 mg/dL (9.8-20.1) 11/12/19 00:17 Creatinine 0.81 mg/dL (0.6-1.1) 11/12/19 00:17 Glucose 108 mg/dL (83-110) 11/12/19 00:17 Calcium 8.9 mg/dL (7.8-10.44) 11/12/19 00:17 Total Bilirubin 0.4 mg/dL (0.2-1.2) 11/12/19 00:17 AST 17 U/L (5-34) 11/12/19 00:17 ALT Less than 7 U/L (8-55) L 11/12/19 00:17 Alkaline Phosphatase 124 U/L (40-110) H 11/12/19 00:17 Creatine Kinase 68 U/L (29-168) 11/12/19 00:17 CK-MB (CK-2) 1.7 ng/mL (0-6.6) 11/12/19 00:17 Troponin I 0.017 ng/mL (< 0.028) 11/12/19 03:02 Serum Total Protein 6.8 g/dL (6.0-8.3) 11/12/19 00:17 Albumin 3.8 g/dL (3.4-4.8) 11/12/19 00:17 Urine Ketones Negative mg/dL (Negative) 11/12/19 00:42 Urine Blood Negative (Negative) 11/12/19 00:42 Urine Nitrite Negative (Negative) 11/12/19 00:42 Ur Leukocyte Esterase 75 Vj/uL (Negative) A 11/12/19 00:42 Urine RBC 4-6 HPF (0-3) A 11/12/19 00:42 Urine WBC 21-50 HPF (0-3) A 11/12/19 00:42 Ur Squamous Epith Cells 0-3 HPF (0-3) 11/12/19 00:42 Urine Bacteria 1+ HPF (None Seen) A 11/12/19 00:42 Hospitalist H&P A/P - Problem (1) AMS (altered mental status) Code(s): R41.82 - ALTERED MENTAL STATUS, UNSPECIFIED Status: Acute (2) Hypoglycemia Code(s): E16.2 - HYPOGLYCEMIA, UNSPECIFIED Status: Resolved (3) Urinary tract infection Status: Acute (4) Suprapubic discomfort Code(s): R10.2 - PELVIC AND PERINEAL PAIN Status: Acute (5) Hypothermia Code(s): T68.XXXA - HYPOTHERMIA, INITIAL ENCOUNTER Status: Acute (6) History of atrial fibrillation Code(s): Z86.79 - PERSONAL HISTORY OF OTHER DISEASES OF THE CIRCULATORY SYSTEM Status: Chronic (7) DM type 2 (diabetes mellitus, type 2) Status: Chronic Qualifiers: Diabetes mellitus lobsterman insulin use: with lobsterman use (8) Hypothyroidism Code(s): E03.9 - HYPOTHYROIDISM, UNSPECIFIED Status: Chronic (9) Parkinson's disease Code(s): G20 - PARKINSON'S DISEASE Status: Chronic - Plan Plan: Monitor glucose, hold diabetes meds for now. Continue rewarming protocol UCx pending, continue antibiotics. Obtain bladder scan, acuna if retaining urine. Cardiac monitoring. Trend troponins. Reconcile home medications once verified. Falls and swallow precautions. Day team to decide of further neuro imaging indicated. Symptoms most likely due to hypoglycemia rather than CVA. DVT Prophylaxis with famotidine. CODE STATUS AND MPOA UNKOWN.
[2019-11-12 05:39] LABS: Magnesium 1.6 mg/dL (1.6-2.6)
[2019-11-12 05:40] LABS: Lactic Acid 0.7 mmol/L (0.5-2.2)
[2019-11-12 05:51] LABS: Troponin I 0.016 ng/mL (< 0.028)
--- NOTE | 2019-11-12 07:46 | RAD ---
EXAM: Single view of the chest HISTORY: Altered mental status/stroke COMPARISON: 04/26/2019 FINDINGS: Single view of the chest shows a normal sized cardiomediastinal silhouette. Increased inte rstitial lung markings are present. There is no evidence of consolidation, mass, or pleural effusion. Degenerative changes seen in the spine. The patient has a remote healed right clavicle frac ture. Degenerative changes seen in the left shoulder. There are multiple remote right rib fractures. IMPRESSION: No evidence of acute cardiopulmonary disease
[2019-11-12] MEDS ORDERED: Acetaminophen/Codeine 30-300mg Tablet PO PRN (08:21)
[2019-11-12] MEDS ORDERED: ALPRAZolam 0.25 MG TAB PO PRN (08:21)
[2019-11-12] MEDS ORDERED: HumaLOG 300 UNITS/3 ML VIAL SC PRN ×3 (08:30→22:40)
--- NOTE | 2019-11-12 08:59 | CT ---
PRELIMINARY REPORT/[facility]/EMERGENCY AFTER HOURS PROCEDURE: Receipt of this report by the clinical staff was confirmed with Hi Gonzalez MD by China Gómez Nov 12, 2019 00:22:00 CDT. Addendum electronically signed by China Gómez on November 12, 2019 12:21:49 AM CDT EXAM: CT Head Without Intravenous Contrast. 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 COMPARISON: None provided. FINDINGS: BRAIN: No acute intraparenchymal hemorrhage. No mass lesion. No CT evidence for acute territorial infarct. N o midline shift or extra-axial collection. Mild generalized cerebral atrophy. Mild subcortical and periventricular white matter change likely related to chronic ischemic small vessel disease. Arterio sclerosis. VENTRICLES: No hydrocephalus. ORBITS: The orbits are unremarkable. SINUSES AND MASTOIDS: The paranasal sinuses and mastoid air cells are clear. SOFT TISSUES: No significant facial or scalp soft tissue swelling evident. No radiopaque foreign body is seen. BONES: No acute skull fracture. IMPRESSION: No acute intracranial abnormality. ELECTRONICALLY SIGNED BY: Derek Clifford MD Nov 12, 2019 12:17:48 AM CDT This report is intended for review by the ordering physician only, in accordance of law. If you recei ve this report in error, please call [facility] at [phone]. FINAL REPORT EMERGENCY AFTER HOURS CT BRAIN WITHOUT CONTRAST: FINDINGS/IMPRESSION: I agree with the findings and impression given in the preliminary report per [facility] physici an. No evidence of acute intracranial abnormality. POS: EAA
[2019-11-12] MEDS ORDERED: Tolterodine Tartrate LA 4 MG CAP PO SCH (09:00)
[2019-11-12] MEDS ORDERED: CARBIDOPA PO SCH ×2 (09:00→21:00)
[2019-11-12] MEDS ORDERED: Non-Formulary Item 1 EACH (Nitrofurantoin Macrocrystal [Nitrofurantoin] 100 MG) PO SCH (09:00)
[2019-11-12] MEDS ORDERED: LEVODOPA PO SCH ×2 (09:00→21:00)
[2019-11-12] MEDS ORDERED: Prevnar 13-Val Conj/PF 0.5 ML SYRINGE IM ONE (09:00)
[2019-11-12] MEDS: Senokot S 8.6-50 MG TAB PO SCH ×2 (09:18→21:15)
[2019-11-12] MEDS: Metoprolol Tartrate 25 MG TAB PO SCH ×2 (09:18→21:13)
[2019-11-12] MEDS: Carbidopa/Levodopa 25-100 mg Tablet PO SCH ×3 (09:19→18:43)
[2019-11-12] MEDS: risperiDONE 0.25 MG TAB PO SCH (09:19)
[2019-11-12] MEDS: Nitrofurantoin Monohyd/M-Cryst 100 MG CAP PO SCH (09:19)
[2019-11-12] MEDS: Levothyroxine Sodium 100 MCG TAB PO SCH (09:19)
[2019-11-12 09:28] LABS: Hemoglobin A1c 9.3 % (4.0-6.0)
[2019-11-12 13:16] LABS: SARS-CoV-2 MS2 Positive; SARS-CoV-2 N Gene Negative; SARS-CoV-2 S Gene Negative; SARS-CoV-2 by NAA Not Detected (NotDetected); SARS-CoV-2 orf1ab Negative
[2019-11-12] MEDS ORDERED: hydrALAZINE 20 MG/ML VIAL SLOW IVP PRN (17:59)
[2019-11-12] MEDS ORDERED: Dextrose 5% in Water 1,000 ML IV PRN (18:15)
[2019-11-12] MEDS ORDERED: Dextrose 50% Abboject 50 ML SYRINGE IVP PRN (18:15)
[2019-11-12] MEDS ORDERED: risperiDONE 0.25 MG TAB PO SCH (21:00)
[2019-11-12] MEDS ORDERED: Non-Formulary Item 1 EACH (Risperidone [Risperdal] 0.5 MG) PO SCH (21:00)
[2019-11-12] MEDS ORDERED: ALPRAZolam 0.5 MG TAB PO SCH (21:00)
[2019-11-12] MEDS ORDERED: Carbidopa/Levodopa 25-100 mg Tablet PO SCH (21:00)
[2019-11-12] MEDS: Trospium 20 MG TAB PO SCH (21:13)
[2019-11-12] MEDS: Acetaminophen 325 MG TAB PO PRN (22:23)
[2019-11-13] MEDS ORDERED: HumaLOG 300 UNITS/3 ML VIAL SC PRN (04:57)
[2019-11-13 05:49] LABS: Anion Gap 10 mmol/L (10-20); BUN (Urea Nitrogen) 14 mg/dL (9.8-20.1); Calc. Creatinine Clearance 66 mL/min (70-130); Carbon Dioxide 26 mmol/L (23-31); Chloride 102 mmol/L (98-107); Estimated GFR-MDRD 74; Glucose 200 mg/dL (83-110); Potassium 4.1 mmol/L (3.5-5.1); Sodium 134 mmol/L (136-145)
[2019-11-13] MEDS: Insulin Glargine 20 UNITS in Pre-Filled Syringe 1 EACH SC SCH ×2 (06:02→06:20)
[2019-11-13] MEDS: Acetaminophen 325 MG TAB PO PRN (06:20)
--- NOTE | 2019-11-13 07:46 | RAD ---
Chest one view HISTORY: Pneumonia. COMPARISON: 11/12/2019. FINDINGS: Cardiac silhouette is magnified by projection. Pulmonary vasculature is unremarkable. Patient is slightly rotated rightward No lobar consolidation or evidence of pneumothorax. Old right rib fractures and right clavicular fracture apparent. Circular lucency over the left latera l chest wall represent extrinsic artifact. IMPRESSION : Stable exam. No active cardiopulmonary abnormalities are demonstrated.
[2019-11-13] MEDS: Carbidopa/Levodopa 25-100 mg Tablet PO SCH ×2 (08:00→13:49)
[2019-11-13] MEDS: Levothyroxine Sodium 100 MCG TAB PO SCH (08:01)
[2019-11-13] MEDS: Metoprolol Tartrate 25 MG TAB PO SCH (08:04)
[2019-11-13] MEDS: risperiDONE 0.25 MG TAB PO SCH (08:04)
[2019-11-13] MEDS: Trospium 20 MG TAB PO SCH (08:05)
[2019-11-13] MEDS: Senokot S 8.6-50 MG TAB PO SCH (08:05)
[2019-11-13] MEDS: Nitrofurantoin Monohyd/M-Cryst 100 MG CAP PO SCH (08:05)
[2019-11-13 09:28] LABS: #Eosinphils 0.2 thou/uL (0.0-0.7); #Lymphocytes 0.7 thou/uL (1.20-3.40); #Monocytes 0.7 thou/uL (0.11-0.59); #Neutrophils 4.8 thou/uL (1.40-6.50); %Basophils 0.5 % (0.0-1.0); %Eosinophils 2.4 % (0.0-10.0); %Lymphocytes 11.4 % (21.0-51.0); %Monocytes 10.8 % (0.0-10.0); %Neutrophils 74.9 % (42.0-75.0); Hemoglobin 10.9 g/dL (12.0-16.0); Mean Corpuscular HGB CONC 30.5 g/dL (32.0-36.0); Mean Corpuscular Hemoglobin 25.2 pg (27.0-31.0); Mean Corpuscular Volume 82.6 fL (78.0-98.0); Mean Platelet Volume 8.4 fL (7.4-10.4); Platelet Count 295 thou/uL (130-400); RBC Distribution Width 17.8 % (11.5-14.5); Red Blood Cell (RBC) Count 4.33 mill/uL (4.20-5.40); White Blood Cell (WBC) Count 6.5 thou/uL (4.8-10.8)
[2019-11-13 13:54] VITALS: BP 151/80; TEMP 98.4
--- NOTE | 2019-11-13 21:03 | DIS ---
DATE OF ADMISSION: 11/12/2019 DATE OF DISCHARGE: 11/13/2019 HOSPITAL COURSE: Ms. Fernández is a 79-year-old female with a medical history of type 1 diabetes, currently on home hospice with [facility] who was found down. She was found to have hypoglycemia to the 30s, possibly self-induced due to insulin overdose in the context of reduced p.o. intake. As an inpatient, her regimen was reduced and blood glucose was stable. She was discharged with followup appointment with her primary care physician to follow up on her blood glucose levels. She was discharged on a reduced dosage of long-acting insulin with low correction dose. PHYSICAL EXAMINATION: VITAL SIGNS: Blood pressure 151/80, pulse 87, respiratory rate 16, oxygen saturation 95% on room air, temperature 98.4. GENERAL: Lying comfortably in bed. Awake and alert. HEENT: Normocephalic, atraumatic. Moist oral mucosa. CARDIAC: Regular rate and rhythm. No murmurs, gallops, or rubs. RESPIRATORY: Clear to auscultation bilaterally. No wheezing, rales, or rhonchi. GI: Soft, nontender, nondistended. Normal bowel sounds. EXTREMITIES: No edema. NEUROLOGIC: Awake and alert, oriented to self only. Of note, the patient had a positive urinalysis and has had multiple previous UTIs with E. coli that was susceptible to nitrofurantoin. She has no complaints of symptoms related to UTI, so so the bacteruria is most likely a result of colonization and the patient is on chronic nitrofurantoin as stated previously. MEDICATION LIST: Modified medications: Lantus was reduced from 30 b.i.d. to 20 b.i.d. as a result of the hypoglycemia. Continued medications: 1. Carbidopa/levodopa. 2. Levothyroxine. 3. Metoprolol tartrate. 4. Senna/docusate. 5. Risperidone. 6. Alprazolam. 7. Tolterodine. 8. Nitrofurantoin. 9. Tylenol with Codeine No. 3. 10. Humalog mild sliding scale. Discontinued medications: No discontinued medications. New medications: No new medications. Job ID: [id number]
--- NOTE | 2019-11-14 18:12 | PDOC.EVN ---
Event Note - Event Note Event Note: patient's urine culture grew nitrofurantoin-resistant klebsiella. Called and asked to [employer] bactrim from pharmacy. said he will.
== END 2019-11-13 14:05 | disposition hospice, home (50) ==
LOC: ERS 00:04 → 2NO 01:57 → T4-A 15:34
PROVIDERS: ADMIT Internal Medicine; ATTEND Internal Medicine
DX: E16.2 Hypoglycemia, unspecified (principal); E10.9 Type 1 diabetes mellitus without complications; G20 Parkinson's disease; F02.80 Dementia in other diseases classified elsewhere, unspecified severity, without behavioral disturbance, psychotic disturbance, mood disturbance, and anxiety; N39.0 Urinary tract infection, site not specified; E03.9 Hypothyroidism, unspecified; I48.20 Chronic atrial fibrillation, unspecified; Z79.4 Long term (current) use of insulin; Z79.899 Other long term (current) drug therapy; Z20.828 Contact with and (suspected) exposure to other viral communicable diseases
CPT/HCPCS: 36600; 51701; 70450; 71045 ×2; 80048; 80053; 82140; 82550 ×2; 82553; 82962 ×2; 83036; 83605; 83735; 84484 ×2; 85025 ×2; 85610; 85730; 87077; 87086; 87186; 93005; 96361; 96365; 96375; 97139 ×3; 97530; 99285; G0378 ×3; U0003; 36415; 36416; 51798; 81003; 81015; 87635; J0696; J1815; J2405